=== PATIENT | male | born 1960 | race Caucasian/White ===

== ENCOUNTER 2016-06-24 15:54 | Inpatient (IN) | payer OTHER ==
[~2016-06-24] VITALS: Ht 182.9 cm; Wt 87.9 kg
[2016-06-24 16:41] LABS: BASO % 0.2 %; BASO ABS # 0.02 K/uL (0-0.2); COMPLETE YES; EOS % 0.7 %; HEMATOCRIT 48.2 % (42-52); IG% 0.5 %; LYMPH % 19.4 %; LYMPH ABS # 2.58 K/uL (1.2-3.4); MEAN CORPUSCULAR HEMOGLOBIN 31.8 pg (25-34); MEAN CORPUSCULAR HGB CONC 36.5 g/dl (32-36); MEAN PLATELET VOLUME 10.9 fL (7.4-10.4); MONO % 6.8 %; NEUT % 72.4 %; PLATELET COUNT 283 K/uL (130-400); RED BLOOD COUNT 5.54 M/uL (4.7-6.1); WHITE BLOOD COUNT 13.33 K/uL (4.8-10.8)
--- NOTE | 2016-06-24 16:47 | DIAGNOSTIC IMAGING REPORT ---
CHEST ONE VIEW PORTABLE CLINICAL HISTORY: Respiratory distress. Dyspnea. COMPARISON STUDY: Chest radiograph June 10, 2011. FINDINGS: Lung volumes are normal. There is no consolidation to suggest pneumonia. There is mild elevation/eventration of the right hemidiaphragm. There is no evidence of pulmonary edema. Cardiac size is normal. Mediastinal contours are normal. IMPRESSION: No acute cardiopulmonary findings. Electronically signed by: Jeremias Zuniga M.D. 06/24/2016 4:45 PM Dictated Date/Time: 06/24/2016 4:45 PM
[2016-06-24] MEDS ORDERED: LIOT5TAB9 PO (16:49)
[2016-06-24] MEDS ORDERED: LEVO75TA PO (16:49)
[2016-06-24] MEDS ORDERED: ASPI81TA28 PO (16:49)
[2016-06-24] MEDS ORDERED: CLOP1TAB15 PO (16:49)
[2016-06-24] MEDS ORDERED: MULT-506 PO (16:49)
[2016-06-24] MEDS ORDERED: CHOL2000 PO (16:49)
[2016-06-24] MEDS ORDERED: FOLI1TAB7 PO (16:49)
--- NOTE | 2016-06-24 16:51 | EMERGENCY ROOM VISIT NOTE ---
History Report prepared by Cheko: Dane Cancino Under the Supervision of: Dr. Harvey Rosa D.O. First contact with patient: 15:57 Chief Complaint: CHEST PAIN Stated Complaint: CHEST PAIN/TIGHTNESS Nursing Triage Summary: pt arrived als from pcp reported chest pain for three days, increased bp denied sob, diaphoresis pt reports having something like this before and they adjusted his thyroid medication History of Present Illness The patient is a 56 year old male who presents to the Emergency Room with complaints of resolved chest tightness beginning two days prior to arrival. He associates increased thirst with todays symptoms. The patient notes drinking water and exertion seem to alleviate his symptoms. He states he usually takes an aspirin a day, but he took two today and was given aspirin at his PCPs office. The patient notes he had a similar episode three years ago, in which, the symptoms were not associated with his heart. He states adjustments were made to his thyroid medication, and he has not had problems until two days ago. The patient denies shortness of breath and diaphoresis. Source of History: patient Onset: 2 days [employer]CIAL SAL[employer] Position: chest Quality: other (tightness) Timing: resolved Modifying Factors (Relieving): exertion, drinking (water) Associated Symptoms: + chest pain (tightness), No SOB, No diaphoresis Note: Associated symptoms: increased thirst Review of Systems See HPI for pertinent positives & negatives. A total of 10 systems reviewed and were otherwise negative. Past Medical & Surgical Medical Problems: (1) Bronchitis (2) Chest tightness (3) Pneumonia Family History Cancer Diabetes mellitus Heart disease Hypertension Social History Smoking Status: Former Smoker Alcohol Use: occasionally Marital Status: Current/Historical Medications Scheduled Aspirin (Aspirin Ec), 81 MG PO QPM Cholecalciferol (Vitamin D3), 2,000 INTER.UNIT PO DAILY Clopidogrel (Plavix), 75 MG PO DAILY Folic Acid (Folvite), 1 MG PO DAILY Levothyroxine Sodium (Synthroid), 75 MCG PO DAILY Liothyronine Sodium (Liothyronine Sodium), 5 MCG PO DAILY Multivitamin (Multivitamin), 1 TAB PO DAILY Allergies Coded Allergies: No Known Allergies (Unverified , 06/24/16) Physical Exam Vital Signs Date Time Temp Pulse Resp B/P Pulse Ox O2 Delivery O2 Flow Rate FiO2 06/24/16 18:04 76 13 97 2/10/17 18:04 76 13 97 06/24/16 18:03 175/110 06/24/16 18:03 175/110 06/24/16 17:58 181/109 06/24/16 17:58 181/109 06/24/16 17:53 191/115 06/24/16 17:53 191/115 06/24/16 17:48 197/119 06/24/16 17:48 197/119 06/24/16 17:43 200/129 06/24/16 17:43 200/129 06/24/16 17:38 189/115 06/24/16 17:38 189/115 06/24/16 17:37 185/116 06/24/16 17:37 185/116 06/24/16 17:34 66 17 97 06/24/16 17:34 66 17 97 06/24/16 17:29 79 18 06/24/16 17:28 218/115 06/24/16 17:24 79 21 97 06/24/16 17:23 202/119 06/24/16 17:19 81 13 97 06/24/16 17:18 205/113 06/24/16 17:14 95 12 95 06/24/16 17:13 198/118 06/24/16 17:10 188/134 06/24/16 17:09 104 16 97 06/24/16 17:04 100 16 97 06/24/16 17:01 112 185/120 06/24/16 16:59 100 17 184/128 97 06/24/16 16:54 100 16 96 06/24/16 16:49 101 17 96 06/24/16 16:44 96 14 96 06/24/16 16:39 101 17 96 06/24/16 16:34 99 15 97 06/24/16 16:30 93 Room Air 06/24/16 16:30 37.1 98 18 169/112 96 Room Air 06/24/16 16:29 100 17 96 06/24/16 16:25 93 Room Air 06/24/16 16:24 102 17 96 06/24/16 16:21 96 Room Air 06/24/16 16:19 98 19 95 06/24/16 16:14 103 17 97 06/24/16 16:10 101 06/24/16 16:09 98 18 97 06/24/16 16:03 169/112 Physical Exam GENERAL: Patient is awake, alert, and in no acute distress. Patient is resting comfortably and showing no signs of anxiety EYES: The conjunctivae are clear. The pupils are round and reactive. EARS, NOSE, MOUTH AND THROAT: The nose is without any evidence of any deformity. Mucous membranes are moist tongue is midline NECK: The neck is nontender and supple. RESPIRATORY: Normal respiratory effort is noted there is no evidence of wheezing rhonchi or rales CARDIOVASCULAR: Regular rate and rhythm noted there no murmurs rubs or gallops normal S1 normal S2 GASTROINTESTINAL: The abdomen is soft. Bowel sounds are present in all quadrants. Abdomen is nontender MUSCULOSKELETAL/EXTREMITIES: There is no evidence of gross deformity full range of motion is noted in the hips and shoulders SKIN: There is no obvious evidence of any rash. There are no petechiae, pallor or cyanosis noted. NEUROLOGIC: Patient is awake alert and oriented x3. Medical Decision & Procedures ER Provider Diagnostic Interpretation: X-ray results as stated below per interpretation by me and the radiologist. CHEST ONE VIEW PORTABLE CLINICAL HISTORY: Respiratory distress. Dyspnea. COMPARISON STUDY: Chest radiograph June 10, 2011. FINDINGS: Lung volumes are normal. There is no consolidation to suggest pneumonia. There is mild elevation/eventration of the right hemidiaphragm. There is no evidence of pulmonary edema. Cardiac size is normal. Mediastinal contours are normal. IMPRESSION: No acute cardiopulmonary findings. Electronically signed by: Jeremias Zuniga M.D. 06/24/2016 4:45 PM Laboratory Results 06/24/16 16:15 Red Blood Count 5.54, Mean Corpuscular Volume 87.0, Mean Corpuscular Hemoglobin 31.8, Mean Corpuscular Hemoglobin Concent 36.5, Mean Platelet Volume 10.9, Neutrophils (%) (Auto) 72.4, Lymphocytes (%) (Auto) 19.4, Monocytes (%) (Auto) 6.8, Eosinophils (%) (Auto) 0.7, Basophils (%) (Auto) 0.2, Neutrophils # (Auto) 9.66, Lymphocytes # (Auto) 2.58, Monocytes # (Auto) 0.91, Eosinophils # (Auto) 0.09, Basophils # (Auto) 0.02 06/24/16 16:15 Test 06/24/16 16:15 White Blood Count 13.33 K/uL (4.8-10.8) Red Blood Count 5.54 M/uL (4.7-6.1) Hemoglobin 17.6 g/dL (14.0-18.0) Hematocrit 48.2 % (42-52) Mean Corpuscular Volume 87.0 fL (80-100) Mean Corpuscular Hemoglobin 31.8 pg (25-34) Mean Corpuscular Hemoglobin Concent 36.5 g/dl (32-36) Platelet Count 283 K/uL (130-400) Mean Platelet Volume 10.9 fL (7.4-10.4) Neutrophils (%) (Auto) 72.4 % Lymphocytes (%) (Auto) 19.4 % Monocytes (%) (Auto) 6.8 % Eosinophils (%) (Auto) 0.7 % Basophils (%) (Auto) 0.2 % Neutrophils # (Auto) 9.66 K/uL (1.4-6.5) Lymphocytes # (Auto) 2.58 K/uL (1.2-3.4) Monocytes # (Auto) 0.91 K/uL (0.11-0.59) Eosinophils # (Auto) 0.09 K/uL (0-0.5) Basophils # (Auto) 0.02 K/uL (0-0.2) RDW Standard Deviation 43.0 fL (36.4-46.3) RDW Coefficient of Variation 13.4 % (11.5-14.5) Immature Granulocyte % (Auto) 0.5 % Immature Granulocyte # (Auto) 0.07 K/uL (0.00-0.02) Prothrombin Time 10.9 SECONDS (9.0-12.0) Prothromb Time International Ratio 1.0 (0.9-1.1) Activated Partial Thromboplast Time 25.7 SECONDS (21.0-31.0) Partial Thromboplastin Ratio 1.0 Anion Gap 12.0 mmol/L (3-11) Est Creatinine Clear Calc Drug Dose 83.4 ml/min Estimated GFR () 100.2 Estimated GFR (Non- 86.4 BUN/Creatinine Ratio 10.4 (10-20) Calcium Level 9.4 mg/dl (8.5-10.1) Total Bilirubin 0.7 mg/dl (0.2-1) Aspartate Amino Transf (AST/SGOT) 38 U/L (15-37) Alanine Aminotransferase (ALT/SGPT) 75 U/L (12-78) Alkaline Phosphatase 75 U/L (45-117) Troponin I 0.226 ng/ml (0-0.045) Total Protein 7.8 gm/dl (6.4-8.2) Albumin 4.2 gm/dl (3.4-5.0) Globulin 3.6 gm/dl (2.5-4.0) Albumin/Globulin Ratio 1.2 (0.9-2) Laboratory results per my review. Medications Administered Medications (Trade) Dose Ordered Sig/Jocelynn Route Start Time Stop Time Status Last Admin Dose Admin Metoprolol Tartrate (Lopressor Iv) 15 mg NOW STAT IV 06/24/16 17:01 06/24/16 17:02 DC 06/24/16 17:01 15 MG Ondansetron HCl (Zofran Inj) 4 mg Q6H PRN IV 06/24/16 18:00 07/24/16 17:59 06/24/16 20:35 4 MG ECG Indication: chest pain Rate (beats per minute): 98 Rhythm: normal sinus Findings: ST depression (Lateral), no ectopy Comparison ECG Date: 06/10/2011 Change: Changes are new. ED Course 1558: The patient was evaluated in room A12B. A complete history and physical examination were performed. 170: Ordered Lopressor Iv 15 mg IV. 1707: I spoke to VAIBHAV Whitney (Hospitalist) about the patient's case, and he will follow the patient for further evaluation. Medical Decision Etiologies such as cardiac ischemia, aortic dissection, pulmonary embolism, pneumonia, pneumothorax, musculoskeletal, infections, pericarditis, myocarditis , esophageal rupture, gastrointestinal, as well as others were entertained. Nursing notes reviewed. Patient's EKG from the PCPs office was reviewed. The patient is a 56-year-old male who presented to the emergency apartment for an evaluation of anterior chest pain. The patient has no chest pain at this time. He explains episodes of pressure across his chest. These very random and do not necessarily appear to be associated with exertion. The patient denies any shortness of breath. He states that he was seen by his primary care physician and sent to the emergency department for an evaluation. His EKG in the office appeared to show ST segment depression in the lateral leads consistent with ischemia. His EKG in the emergency department showed a similar pattern. This appeared to be a new change compared to his previous EKG. I discussed the patient's laboratory and radiographic studies with him. He was treated with aspirin prior to arrival. He was treated with Lopressor in the emergency department. I discussed the limitations of the emergency department workup for chest pain with him. I also discussed his case with the on-call [facility] hospitalist group. They have agreed to evaluate the patient in the emergency department for further management and disposition. Consults Time Called: 170 Consulting Physician: VAIBHAV Whitney (Hospitalist) Returned Call: 1707 I spoke to VAIBHAV Whitney (Hospitalist) about the patient's case, and he will follow the patient for further evaluation. Impression Primary Impression: Left sided chest pain Additional Impressions: Abnormal EKG Elevated troponin Scribe Attestation The scribe's documentation has been prepared under my direction and personally reviewed by me in its entirety. I confirm that the note above accurately reflects all work, treatment, procedures, and medical decision making performed by me. Departure Information Dispostion Being Evaluated By Hospitalist (VAIBHAV Whitney (Hospitalist)) Referrals Micki James MD (PCP) Problem Qualifiers
[2016-06-24 16:52] LABS: PROTHROMBIN TIME (PATIENT) 10.9 SECONDS (9.0-12.0)
[2016-06-24] MEDS ORDERED: METOPROLOL TARTRATE 1 MG/ML VIAL IV STA (17:01)
[2016-06-24 17:10] LABS: BUN/CREATININE RATIO 10.4 (10-20); CALCIUM 9.4 mg/dl (8.5-10.1); CREATININE 0.98 mg/dl (0.60-1.40); POTASSIUM 3.6 mmol/L (3.5-5.1)
[2016-06-24 17:13] LABS: ALB/GLOB RATIO 1.2 (0.9-2)
[2016-06-24] MEDS ORDERED: NITROGLYCERIN 0.4 MG SL PER TAB CHARGE SL PRN (18:00)
[2016-06-24] MEDS ORDERED: POLYETHYLENE (MIRALAX) 17 GM PACK PO PRN (18:00)
[2016-06-24] MEDS ORDERED: MAGNESIUM HYDROXIDE SUSP 30 ML UDC PO PRN (18:00)
[2016-06-24] MEDS ORDERED: MoRPHine SULFATE 2 MG/ML CARP IV PRN (18:00)
--- NOTE | 2016-06-24 18:46 | History and Physical ---
History & Physical Date & Time of Service: Jun 24, 2016 at 18:26 Chief Complaint: Chest Pain/Tightness Primary Care Physician: Micki James MD History of Present Illness Source: patient 56 y/o M with PMH of hypothyroidism here with c/o chest tightness which started about 2 days ago and is now resolved. He had taken 2 baby aspirin and was at his PCP's office where EKG had showed ST depression changes after which he was advised to go to the ER after getting another aspirin. He states his chest tightness is not associated with any SOB/palpitations/ nausea or diaphoresis but felt anxious on and off. His symptoms improved on drinking water and walking and "doing things". He notes that he had a similar episode three years ago, in which, the symptoms were not associated with his heart after a work up including a stress test. he is a former smoker and does have a significant f/h of heart disease in both his parents and his father had a [place] in his 40s. No h/o HTN or DM Past Medical/Surgical History Hypothyroidism TIA like symptoms Social History Smoking Status: Former Smoker Marital Status: Housing status: lives with family Multi-Drug Resistant Organisms History of MDRO: No Allergies Coded Allergies: No Known Allergies (Unverified , 06/24/16) Home Medications Scheduled Aspirin (Aspirin Ec), 81 MG PO QPM Cholecalciferol (Vitamin D3), 2,000 INTER.UNIT PO DAILY Clopidogrel (Plavix), 75 MG PO DAILY Folic Acid (Folvite), 1 MG PO DAILY Levothyroxine Sodium (Synthroid), 75 MCG PO DAILY Liothyronine Sodium (Liothyronine Sodium), 5 MCG PO DAILY Multivitamin (Multivitamin), 1 TAB PO DAILY Review of Systems Constitutional: No chills, No fever Eyes: No worsening of vision ENT: No hearing loss Respiratory: No cough, No shortness of breath Cardiovascular: + problem reported (chest tightness), No chest pain Abdomen: No nausea, No pain, No vomiting Musculoskeletal: No joint pain Genitourinary - Male: No dysuria, No hematuria Psychiatric: + anxiety Endocrine: No fatigue Physical Exam Vital Signs Date Time Temp Pulse Resp B/P Pulse Ox O2 Delivery O2 Flow Rate FiO2 06/24/16 17:29 79 18 06/24/16 17:28 218/115 06/24/16 17:24 79 21 97 06/24/16 17:23 202/119 06/24/16 17:19 81 13 97 06/24/16 17:18 205/113 06/24/16 17:14 95 12 95 06/24/16 17:13 198/118 06/24/16 17:10 188/134 06/24/16 17:09 104 16 97 06/24/16 17:04 100 16 97 06/24/16 17:01 112 185/120 06/24/16 16:59 100 17 184/128 97 06/24/16 16:54 100 16 96 06/24/16 16:49 101 17 96 06/24/16 16:44 96 14 96 06/24/16 16:39 101 17 96 06/24/16 16:34 99 15 97 06/24/16 16:30 93 Room Air 06/24/16 16:30 37.1 98 18 169/112 96 Room Air 06/24/16 16:29 100 17 96 06/24/16 16:25 93 Room Air 06/24/16 16:24 102 17 96 06/24/16 16:21 96 Room Air 06/24/16 16:19 98 19 95 06/24/16 16:14 103 17 97 06/24/16 16:10 101 06/24/16 16:09 98 18 97 06/24/16 16:03 169/112 General Appearance: WD/WN, no apparent distress Head: normocephalic Eyes: normal inspection ENT: hearing grossly normal Neck: supple, no adenopathy Respiratory/Chest: chest non-tender, lungs clear, normal breath sounds, no respiratory distress, no accessory muscle use Cardiovascular: regular rate, rhythm Abdomen/GI: normal bowel sounds, non tender, soft Extremities/Musculoskelatal: no pedal edema Neurologic/Psych: alert, normal mood/affect, oriented x 3 Diagnostics Laboratory Results Results Past 24 Hours Test 06/24/16 16:15 Range/Units White Blood Count 13.33 4.8-10.8 K/uL Red Blood Count 5.54 4.7-6.1 M/uL Hemoglobin 17.6 14.0-18.0 g/dL Hematocrit 48.2 42-52 % Mean Corpuscular Volume 87.0 80-100 fL Mean Corpuscular Hemoglobin 31.8 25-34 pg Mean Corpuscular Hemoglobin Concent 36.5 32-36 g/dl Platelet Count 283 130-400 K/uL Mean Platelet Volume 10.9 7.4-10.4 fL Neutrophils (%) (Auto) 72.4 % Lymphocytes (%) (Auto) 19.4 % Monocytes (%) (Auto) 6.8 % Eosinophils (%) (Auto) 0.7 % Basophils (%) (Auto) 0.2 % Neutrophils # (Auto) 9.66 1.4-6.5 K/uL Lymphocytes # (Auto) 2.58 1.2-3.4 K/uL Monocytes # (Auto) 0.91 0.11-0.59 K/uL Eosinophils # (Auto) 0.09 0-0.5 K/uL Basophils # (Auto) 0.02 0-0.2 K/uL RDW Standard Deviation 43.0 36.4-46.3 fL RDW Coefficient of Variation 13.4 11.5-14.5 % Immature Granulocyte % (Auto) 0.5 % Immature Granulocyte # (Auto) 0.07 0.00-0.02 K/uL Prothrombin Time 10.9 9.0-12.0 SECONDS Prothromb Time International Ratio 1.0 0.9-1.1 Activated Partial Thromboplast Time 25.7 21.0-31.0 SECONDS Partial Thromboplastin Ratio 1.0 Sodium Level 140 136-145 mmol/L Potassium Level 3.6 3.5-5.1 mmol/L Chloride Level 105 98-107 mmol/L Carbon Dioxide Level 23 21-32 mmol/L Anion Gap 12.0 3-11 mmol/L Blood Urea Nitrogen 10 7-18 mg/dl Creatinine 0.98 0.60-1.40 mg/dl Est Creatinine Clear Calc Drug Dose 83.4 ml/min Estimated GFR () 100.2 Estimated GFR (Non- 86.4 BUN/Creatinine Ratio 10.4 10-20 Random Glucose 187 70-99 mg/dl Calcium Level 9.4 8.5-10.1 mg/dl Total Bilirubin 0.7 0.2-1 mg/dl Aspartate Amino Transf (AST/SGOT) 38 15-37 U/L Alanine Aminotransferase (ALT/SGPT) 75 12-78 U/L Alkaline Phosphatase 75 45-117 U/L Total Protein 7.8 6.4-8.2 gm/dl Albumin 4.2 3.4-5.0 gm/dl Globulin 3.6 2.5-4.0 gm/dl Albumin/Globulin Ratio 1.2 0.9-2 Diagnostic Radiology [~ rep ct add3]] CHEST ONE VIEW PORTABLE CLINICAL HISTORY: Respiratory distress. Dyspnea. COMPARISON STUDY: Chest radiograph June 10, 2011. FINDINGS: Lung volumes are normal. There is no consolidation to suggest pneumonia. There is mild elevation/eventration of the right hemidiaphragm. There is no evidence of pulmonary edema. Cardiac size is normal. Mediastinal contours are normal. IMPRESSION: No acute cardiopulmonary findings. EKG Normal sinus rhythm Possible Left atrial enlargement Nonspecific ST abnormality Abnormal ECG When compared with ECG of 10-JUN-2011 11:31, ST now depressed in Lateral leads Impression Assessment and Plan 56 y/o M with PMH of hypothyroidism here with c/o chest tightness which started about 2 days ago and is now resolved. Chest pain with new ST depression changes: Observation in Tele EKG: Normal sinus rhythm, Possible Left atrial enlargement When compared with ECG of 10-JUN-2011 ST now depressed in Lateral lead - Troponin 0.226, trended q8h - CKMB pending - Aspirin - Echo ordered - Consider stress test in AM - Fasting lipids in AM Elevated BP: - BP has been elevated 160-200/100-129 - lisinopril 10 mg Hypothyroidism: - Continue liothyronine and Synthroid H/o TIA like symptoms: - Aspirin and Plavix Full code DVT prophylaxis: Enoxaparin Dispo: observation in tele Level of Care Telemetry Resuscitation Status FULL RESUSCITATION VTE Prophylaxis VTE Risk Assessment Done? Y/N: Yes Risk Level: Moderate Given or contraindicated: Enoxaparin (Lovenox)SQ Reviewed: Pt Seen/Exam by Me, RN Notes, HO Notes, Prior Records, Labs, RAD, EKG History Resident Physician Supervision Note: I was present with Dr. vegas during the history and exam. I discussed the case with the resident and agree with the findings and plan as documented in the note. Any exceptions or clarifications are listed here: 56 y/o M with PMH of hypothyroidism here with c/o chest tightness which started about 2 days ago and is now resolved. Documented By: Connor Fontaine Constitutional: denies: chills Respiratory: negative: cough Cardiovascular: denies chest pain Gastrointestinal/Abdominal: negative: abdominal pain Musculoskeletal: negative: back pain Neurological/Psych: negative: anxiety Hematologic/Lymphatic: negative: anemia General Appearance: WD/WN, no apparent distress Eye Exam: bilateral eye normal inspection Ears, Nose, Throat: hearing grossly normal Neck: non-tender Respiratory: chest non-tender Cardiovascular: regular rate, rhythm Gastrointestinal: normal bowel sounds Extremities: normal range of motion Neurologic/Psychiatric: alert Skin Characteristics: normal color Assessment/Plan 56 y/o M with PMH of hypothyroidism here with c/o chest tightness which started about 2 days ago and is now resolved. Chest pain with new ST depression changes: Tele EKG: Normal sinus rhythm, Possible Left atrial enlargement When compared with ECG of 10-JUN-2011 ST now depressed in Lateral lead Troponin 0.226, trend q8h CKMB pending. check q8h cont Aspirin Echo ordered Fasting lipids in AM Elevated BP: BP has been elevated 160-200/100-129 lisinopril 10 mg Hypothyroidism: Continue liothyronine and Synthroid H/o TIA like symptoms: Aspirin and Plavix Full code case discussed with PGY 1 Dr Vegas time spent 45 min
[2016-06-24] MEDS ORDERED: LISINOPRIL 20 MG TAB PO STA (18:58)
[2016-06-24 20:15] VITALS: BP 176/109; PULSE 67; TEMP 36.8; O2SAT 96
[2016-06-24] MEDS: ONDANSETRON INJ 2 MG/ML 2 ML VIAL IV PRN (20:35)
[2016-06-24 20:58] VITALS: BP 176/109; PULSE 67; TEMP 36.8; O2SAT 96; Ht 182.9 cm; Wt 87.9 kg
[2016-06-24] MEDS ORDERED: ENOXAPARIN 40 MG/0.4 ML SYR SC SCH (21:00)
[2016-06-24] MEDS ORDERED: IV FLUIDS COMPLETED PRN (21:30)
[2016-06-24 21:47] VITALS: BP 178/106
[2016-06-24] MEDS: NITROGLYCERIN OINT 2% 1GM PACKET EXT SCH (22:20)
[2016-06-24 22:35] VITALS: BP 164/98
[2016-06-24 23:47] VITALS: BP 135/73; PULSE 76; TEMP 37.1; O2SAT 95
[2016-06-25] VITALS (8 sets, daily range): BP systolic 113–147; BP diastolic 66–85; PULSE 60–76; TEMP 36.7–37; O2SAT 94–97
[2016-06-25 00:42] LABS: URINE APPEARANCE CLEAR (CLEAR); URINE BILIRUBIN NEG (NEG); URINE COLOR YELLOW; URINE NITRITE NEG (NEG); URINE SPECIFIC GRAVITY 1.004 (1.000-1.030); UROBILINOGEN NEG (NEG)
[2016-06-25 00:46] LABS: MANUAL MICROSCOPIC REQUIRED? NO; REVIEW REQ? NO
[2016-06-25] MEDS: NITROGLYCERIN OINT 2% 1GM PACKET EXT SCH ×4 (04:24→21:45)
[2016-06-25] MEDS ORDERED: SODIUM CHLORIDE 0.65% NA SOLN 45 ML (OCEAN) PRN (05:30)
[2016-06-25] MEDS ORDERED: PNEUMOCOCCAL ADMINISTRATION CHARGE ONE (08:00)
[2016-06-25] MEDS ORDERED: PNEUMOCOCCAL POLYSACCHARIDES 25 MCG/0.5 ML VIAL/SYR IM. ONE (08:00)
[2016-06-25] MEDS ORDERED: INFLUENZA ADMINISTRATION CHARGE ONE (08:00)
[2016-06-25] MEDS ORDERED: INFLUENZA VIRUS QUAD VACCINE 0.5 ML SYR IM. ONE (08:00)
[2016-06-25 08:30] LABS: HEMATOCRIT 45.6 % (42-52); MEAN CELL VOLUME 86.5 fL (80-100); MEAN CORPUSCULAR HEMOGLOBIN 30.6 pg (25-34); MEAN CORPUSCULAR HGB CONC 35.3 g/dl (32-36); MEAN PLATELET VOLUME 10.7 fL (7.4-10.4); PLATELET COUNT 268 K/uL (130-400); RED BLOOD COUNT 5.27 M/uL (4.7-6.1); WHITE BLOOD COUNT 17.54 K/uL (4.8-10.8)
[2016-06-25] MEDS: LISINOPRIL 10 MG TAB PO SCH (08:30)
[2016-06-25 09:00] LABS: BLOOD UREA NITROGEN 10 mg/dl (7-18); BUN/CREATININE RATIO 11.4 (10-20); CARBON DIOXIDE 22 mmol/L (21-32); CHLORIDE 106 mmol/L (98-107); CREATININE 0.91 mg/dl (0.60-1.40); GLUCOSE 141 mg/dl (70-99); POTASSIUM 3.9 mmol/L (3.5-5.1); SODIUM 139 mmol/L (136-145)
[2016-06-25] MEDS ORDERED: ASPIRIN 81 MG ECTAB PO SCH (09:00)
[2016-06-25 09:07] LABS: CHOLESTEROL 221 mg/dl (0-200); HDL CHOLESTEROL 44 mg/dl; LDL CHOLESTEROL CALCULATED 127 mg/dl; TRIGLYCERIDES 251 mg/dl (0-150); VERY LOW DENSITY LIPOPROT CALC 50 mg/dl
[2016-06-25] MEDS: LIOTHYRONINE SODIUM 5 MCG TAB PO SCH (10:23)
[2016-06-25] MEDS: LEVOTHYROXINE 75 MCG TAB PO SCH (10:24)
[2016-06-25] MEDS: CHOLECALCIFEROL 1000 INTER.UNIT TAB PO SCH (10:24)
[2016-06-25] MEDS: MULTIVITAMIN TAB PO SCH (10:24)
[2016-06-25] MEDS: CLOPIDOGREL BISULFATE 75 MG TAB PO SCH (10:24)
[2016-06-25] MEDS ORDERED: ATORVASTATIN 40 MG TAB PO ONE (13:30)
[2016-06-25 14:11] LABS: BASO % 0.1 %; BASO ABS # 0.02 K/uL (0-0.2); EOS % 0.2 %; HEMATOCRIT 43.5 % (42-52); IG% 0.4 %; LYMPH % 8.2 %; LYMPH ABS # 1.53 K/uL (1.2-3.4); MEAN CELL VOLUME 87.2 fL (80-100); MEAN CORPUSCULAR HEMOGLOBIN 31.1 pg (25-34); MEAN PLATELET VOLUME 10.4 fL (7.4-10.4); MONO % 7.5 %; NEUT % 83.6 %; PLATELET COUNT 253 K/uL (130-400); RED BLOOD COUNT 4.99 M/uL (4.7-6.1); WHITE BLOOD COUNT 18.77 K/uL (4.8-10.8)
[2016-06-25 14:19] LABS: COMPLETE YES; MEAN CORPUSCULAR HGB CONC 35.6 g/dl (32-36)
--- NOTE | 2016-06-25 14:22 | CARDIOLOGY CONSULTATION ---
DATE OF CONSULTATION: 06/25/2016 DATE OF CONSULTATION: 06/25/2016. PRIMARY PHYSICIAN: Micki James M.D. ATTENDING PHYSICIAN: Seymour Abrams D.O. CONSULTATION: Ashvin Nazario M.D. HISTORY OF PRESENT ILLNESS: The patient is a 56-year-old white male. No prior history of heart disease. On 06/22/2016, he began to develop recurrent episodes of chest tightness. He vaguely describes it. It was throughout his upper body. He does describe radiation into his neck, arms. No associated symptoms of diaphoresis, nausea, or dyspnea. He states the episodes were of mild intensity. They could last for a few hours at a time. He thinks they improved if you walked or drank water. He states that he went to bed that night with the discomfort. He woke up with it the next morning. He states over the next 2 days, he had intermittent episodes of similar discomfort. No association with activities. He was with his at her primary care provider's office yesterday. This is also his primary care provider. His symptoms were discussed with the primary care provider who subsequently performed an electrocardiogram. This revealed lateral ST segment depressions suggestive of ischemia. It was recommended to him that he go to [facility] for evaluation. The patient was subsequently evaluated in the Emergency Department. Repeat electrocardiogram again showed ST depressions in leads I, aVL, V4-V6 suggestive of ischemia. The depressions 0.5-1 mm. They are upsloping. The patient was admitted to the telemetry unit. He was placed on topical nitrates. At the time of admission, he was already on aspirin and clopidogrel. He states that this morning he had a vague sensation of chest tightness. At the current time he has no complaints of chest tightness or any other anginal type pains. He states that recently his exercise tolerance and stamina have been stable. He denies any exertionally precipitated anginal symptoms. No dyspnea on exertion. No orthopnea or PND. He did have sensation of increased heart rate this morning. He states the nursing staff told them on the monitor his heart rate was around 100. These palpitations has since resolved. CAD risk factors include family history of premature coronary artery disease. His father had a myocardial infarction when he was in his low 40s. The patient has glucose intolerance and dyslipidemia. These are both untreated. No history of hypertension. Prior history of cigarette smoking. He stopped smoking cigarettes 5 years ago. Prior to that he had smoked cigarettes for approximately 30 years up to 1 pack a day. The patient states that a few years ago he had similar type symptoms. He states his stress test was normal. There were no records of this test being performed at [facility]. PAST MEDICAL HISTORY: 1. Hypothyroidism. 2. History of adenomatous polyps of colon. 3. History of heme positive stool. 4. Colonoscopy 05/24/2016 with colon polyp. Subsequent polypectomy. 5. His office EHR records show history of type 2 diabetes mellitus. 6. Dyslipidemia, untreated. 7. Retinitis pigmentosa. 8. No prior overnight hospitalizations. PAST SURGICAL HISTORY: None. MEDICATIONS AT TIME OF ADMISSION: Were aspirin 81 mg daily, clopidogrel 75 mg daily, CoQ10 100 mg daily, folic acid 1 mg daily, Cytomel 5 mcg daily, multivitamin 1 daily, levothyroxine 75 mcg daily, vitamin D 2000 units daily. CURRENT MEDICATIONS: Aspirin 81 mg daily, clopidogrel 75 mg daily, folic acid 1 mg daily, levothyroxine 75 mcg daily, Cytomel 5 mcg daily, multivitamin 1 daily, vitamin D 2000 units daily, lisinopril 10 mg daily, nitroglycerin ointment 1 inch q. 6 hours, Lovenox 40 mg subQ at bedtime, and several p.r.n. medications. ALLERGIES: No known drug allergies. FAMILY HISTORY: His mother of complications of a myocardial infarction when she was in her 70s. Father with history of IA approximately age 40. He from complications of a CVA in his 70s. He has 1 sister who is alive and well. SOCIAL HISTORY: The patient is and lives with his . No children. Very rare alcohol use. He stopped smoking cigarettes 5 years ago. He is retired. He helps provide care to his . She has chronic right chest wound that requires dressing changes twice a day. REVIEW OF SYSTEMS: 1. As above. 2. Recent sensation of increased thirst. 3. He complains of increased urination recently. No other urinary complaints. 4. No current symptoms of GI bleeding. No other bleeding complaints. 5. No cerebrovascular or peripheral vascular complaints. 6. Other than the dry mouth, no other HEENT complaints. 7. No pulmonary complaints. PHYSICAL EXAMINATION: GENERAL: The patient is sitting up in his bed. No distress. VITAL SIGNS: At 11:03 a.m. today with oral temperature 36.9, pulse 68, blood pressure 121/69, pulse oximetry room air 95%. HEAD: Normal. EYES: Pupils equal and round. Anicteric. Conjunctivae normal. No xanthelasma. NECK: No jugular venous distension. Carotids 2/2 bilaterally. Normal upstroke. No bruits. LUNGS: Normal respiratory effort. Clear. No rales or wheezes. HEART: PMI normal. No lifts or heaves. Regular rate and rhythm. S1, S2 normal. No S3 or S4. No murmur or rub. ABDOMEN: Soft. Nontender. No palpable masses or organomegaly. No bruits. EXTREMITIES: No pretibial edema. No cyanosis or clubbing. PULSES: Distal pulses in all extremities strongly palpable. NEUROLOGICAL: Alert and oriented x3. Motor grossly intact. PSYCHIATRIC: Affect is normal. DATA: Electrocardiograms were reviewed by me. Electrocardiogram yesterday with sinus rhythm, ST depressions in leads 1, aVL, V4-V6 suggestive of ischemia. Electrocardiogram performed this morning with horizontal slowly upsloping ST depression in V4-V6. Chest x-ray on this admission and reviewed by me shows normal heart size. No evidence of heart failure or infiltrate. LABORATORY DATA TODAY: WBC 17.54, hemoglobin 16.1, hematocrit 45.6, platelet count 268. INR yesterday was 1.0. PTT 25.7. Metabolic profile today with sodium 139, potassium 3.9, chloride 106, carbon dioxide 22, BUN 10, creatinine 0.91, random glucose 141. CK-MBs have been 17.4 and 16.1. Troponin I's have been 2.090 and 2.230. Another troponin I was reported to be 0.226. Lipid profile with triglycerides 251, total cholesterol 221, calculated LDL 127, HDL 44. TSH 4.850. AST yesterday was 38. ASSESSMENT: 1. Non-ST elevation myocardial infarction. Lateral ST segment changes suggestive of ischemia. No diagnostic ST segment abnormalities of myocardial injury. Troponin I significantly elevated. The patient has been experiencing recurrent episodes of a vaguely described upper chest tightness over the past 3 days. No exertional component to it. He may have had a brief episode this morning. He is very unclear in his history about his symptoms. 2. Coronary artery disease risk factors include prior smoking history, family history of premature coronary artery disease, diabetes mellitus, dyslipidemia. His dyslipidemia thus far has been not treated with medical therapy. 3. Hypothyroidism. 4. Elevations in blood pressure with chest tightness. This could be secondary to myocardial ischemia. 5. No evidence of cerebrovascular disease or peripheral vascular disease. 6. Elevated white blood cell count. This may be secondary to stress of his acute illness. No symptoms suggestive of infection. RECOMMENDATIONS: 1. Continue aspirin and clopidogrel. He states he has been on clopidogrel since he was evaluated for chest discomfort 3 years ago. 2. Discontinue Lovenox. 3. Start intravenous heparin by weight based protocol. 4. Metoprolol tartrate 25 mg b.i.d. Titrate upwards to control heart rate. 5. Atorvastatin 80 mg daily. First dose today. 6. Repeat cardiac enzymes and electrocardiogram tomorrow. 7. If the patient agrees to stay in the hospital would schedule him for cardiac catheterization on Monday06/27/2016. The patient states that he is considering leaving the hospital just to be able to go home and tend to his . I discussed with him that I would not recommend this. I discussed with him that he would be at increased risk for a large myocardial infarction if he went home. He will discuss his plans with Dr. Seymour Abrams who is the hospitalist covering him today. If he does desire to go home the would set him up for outpatient cardiac catheterization early next week. The above assessment and recommendations were discussed with the patient, Dr. Abrams, and the nursing staff. The procedure, alternatives, risks, and benefits of cardiac catheterization and coronary intervention were extensively discussed with the patient by me. Thank you for asking us to see this patient in cardiology consultation.
[2016-06-25 14:31] LABS: PROTHROMBIN TIME (PATIENT) 11.1 SECONDS (9.0-12.0)
[2016-06-25] MEDS ORDERED: HEPARIN IV BOLUS 7,000 UNIT in SYRINGE 0 ML IV ONE (16:00)
[2016-06-25] MEDS: HEPARIN 25,000 UNIT/500ML D5W 500 ML IV PRN (16:29)
[2016-06-25] MEDS: LORAZEPAM 0.5 MG TAB PO PRN (16:32)
[2016-06-25] MEDS: ACETAMINOPHEN 325 MG TAB PO PRN (16:34)
--- NOTE | 2016-06-25 16:48 | Progress Note ---
Subjective Date of Service: Jun 25, 2016. Subjective Pt evaluation today including: conversation w/ patient, conversation w/ family , physical exam, chart review, lab review, review of studies, conversation w/ email production consultant, review of inpatient medication list chest pain overall improved. has some residual tightness but thinks this might actually be anxiety from being in the hospital. no sob. worried about taking care of his - when clarifying this, she's safe at home alone, drives/can get food/etc - just notes the main thing is BID dressing changes to her chest wall - when discussing home services/etc - he notes that it's simple enough he could just do it when she comes to the hospital to visit him. worried about going home though - 2 visits, ~45mins (or more) face to face in discussions w pt and then later pt and , in regards to risks/benefits/ alternatives for treating NSTEMI and presumed CAD. Problem List Medical Problems: (1) Abnormal EKG Status: Acute (2) Elevated troponin Status: Acute (3) Left sided chest pain Status: Acute Review of Systems Cardiac: + see HPI Psychiatric: + see HPI ros otherwise negative except for as above Objective Vital Signs Date Time Temp Pulse Resp B/P Pulse Ox O2 Delivery O2 Flow Rate FiO2 06/25/16 15:43 37.0 75 18 147/85 94 Room Air 06/25/16 12:00 95 Room Air 06/25/16 11:03 36.9 68 18 121/69 95 Room Air 06/25/16 08:00 95 Room Air 06/25/16 07:20 36.7 67 18 113/70 95 Room Air 06/25/16 04:22 115/77 06/25/16 04:13 37.0 76 20 129/66 96 Room Air 06/25/16 04:00 Room Air 06/25/16 00:00 Room Air 06/24/16 23:47 37.1 76 20 135/73 95 Room Air 06/24/16 22:35 164/98 06/24/16 21:47 178/106 06/24/16 20:58 36.8 67 16 176/109 96 Room Air 06/24/16 20:15 36.8 67 16 176/109 96 Room Air 06/24/16 19:34 82 18 168/125 96 Room Air 2/10/17 18:28 166/120 06/24/16 18:28 166/120 06/24/16 18:23 183/101 06/24/16 18:23 183/101 06/24/16 18:18 190/112 06/24/16 18:18 190/112 06/24/16 18:13 166/111 06/24/16 18:13 166/111 06/24/16 18:08 164/100 06/24/16 18:08 164/100 06/24/16 18:04 76 13 97 06/24/16 18:04 76 13 97 06/24/16 18:03 175/110 06/24/16 18:03 175/110 06/24/16 17:58 181/109 06/24/16 17:58 181/109 06/24/16 17:53 191/115 06/24/16 17:53 191/115 06/24/16 17:48 197/119 06/24/16 17:48 197/119 06/24/16 17:43 200/129 06/24/16 17:43 200/129 06/24/16 17:38 189/115 06/24/16 17:38 189/115 06/24/16 17:37 185/116 06/24/16 17:37 185/116 06/24/16 17:34 66 17 97 06/24/16 17:34 66 17 97 06/24/16 17:29 79 18 06/24/16 17:28 218/115 06/24/16 17:24 79 21 97 06/24/16 17:23 202/119 06/24/16 17:19 81 13 97 06/24/16 17:18 205/113 06/24/16 17:14 95 12 95 06/24/16 17:13 198/118 06/24/16 17:10 188/134 06/24/16 17:09 104 16 97 06/24/16 17:04 100 16 97 06/24/16 17:01 112 185/120 06/24/16 16:59 100 17 184/128 97 06/24/16 16:54 100 16 96 06/24/16 16:49 101 17 96 06/24/16 16:44 96 14 96 Physical Exam General Appearance: no apparent distress Eyes: EOMI ENT: hearing grossly normal Neck: trachea midline Respiratory/Chest: no respiratory distress, no accessory muscle use Extremities: normal range of motion Neurologic/Psychiatric: compressor battery pellets II-XII nml as tested, alert, normal mood/affect ( anxious at times but seems overall appropriate to the situation), oriented x 3 Skin: normal color, warm/dry Laboratory Results Last 24 Hours Test 06/24/16 23:59 06/25/16 00:33 06/25/16 07:59 06/25/16 08:10 Creatine Kinase MB Ratio Urine Color YELLOW Urine Appearance CLEAR Urine pH 7.0 Urine Specific [place] 1.004 Urine Protein NEG Urine Glucose (UA) 2+ Urine Ketones NEG Urine Occult Blood NEG Urine Nitrite NEG Urine Bilirubin NEG Urine Urobilinogen NEG Urine Leukocyte Esterase NEG White Blood Count 17.54 K/uL Red Blood Count 5.27 M/uL Hemoglobin 16.1 g/dL Hematocrit 45.6 % Mean Corpuscular Volume 86.5 fL Mean Corpuscular Hemoglobin 30.6 pg Mean Corpuscular Hemoglobin Concent 35.3 g/dl RDW Standard Deviation 42.6 fL RDW Coefficient of Variation 13.5 % Platelet Count 268 K/uL Mean Platelet Volume 10.7 fL Sodium Level 139 mmol/L Potassium Level 3.9 mmol/L Chloride Level 106 mmol/L Carbon Dioxide Level 22 mmol/L Anion Gap 11.0 mmol/L Blood Urea Nitrogen 10 mg/dl Creatinine 0.91 mg/dl Est Creatinine Clear Calc Drug Dose 100.7 ml/min Estimated GFR () 109.6 Estimated GFR (Non- 94.5 BUN/Creatinine Ratio 11.4 Random Glucose 141 mg/dl Calcium Level 9.0 mg/dl Creatine Kinase MB 16.1 ng/ml Troponin I 2.320 ng/ml Triglycerides Level 251 mg/dl Cholesterol Level 221 mg/dl HDL Cholesterol 44 mg/dl LDL Cholesterol, Calculated 127 mg/dl VLDL Cholesterol, Calculated 50 mg/dl Cholesterol/HDL Ratio 5.0 Thyroid Stimulating Hormone (TSH) 4.850 uIu/ml Test 06/25/16 14:03 White Blood Count 18.77 K/uL Red Blood Count 4.99 M/uL Hemoglobin 15.5 g/dL Hematocrit 43.5 % Mean Corpuscular Volume 87.2 fL Mean Corpuscular Hemoglobin 31.1 pg Mean Corpuscular Hemoglobin Concent 35.6 g/dl Platelet Count 253 K/uL Mean Platelet Volume 10.4 fL Neutrophils (%) (Auto) 83.6 % Lymphocytes (%) (Auto) 8.2 % Monocytes (%) (Auto) 7.5 % Eosinophils (%) (Auto) 0.2 % Basophils (%) (Auto) 0.1 % Neutrophils # (Auto) 15.70 K/uL Lymphocytes # (Auto) 1.53 K/uL Monocytes # (Auto) 1.41 K/uL Eosinophils # (Auto) 0.03 K/uL Basophils # (Auto) 0.02 K/uL RDW Standard Deviation 43.6 fL RDW Coefficient of Variation 13.7 % Immature Granulocyte % (Auto) 0.4 % Immature Granulocyte # (Auto) 0.08 K/uL Prothrombin Time 11.1 SECONDS Prothromb Time International Ratio 1.0 Activated Partial Thromboplast Time 25.3 SECONDS Partial Thromboplastin Ratio 1.0 Assessment and Plan NSTEMI (either from CAD or due to hypertensive urgency with probable underlying CAD) -med management - on dual antiplatelets already, add beta nico, on ACEi, currently on nitrates, add statin, add heparin gtt for now, cath soon) -after extensive discussion of cath, med management, home/return vs ongoing inpt - after discussing small but real risk for re-infarction, non-perfusing arrhythmia - he opts to stay. -labs ordered to risk stratify w lipids, sugar hypertensive urgency - med as above, BP has improved Hypothyroidism: - Continue liothyronine and Synthroid - check TSH a few hours after taking T3 drug - typically these peak and drop quickly - may be becoming transiently hyperthyroid which would not help in BP/ CAD management, etc anxiety -extensive reassurance, supportive care. while in hospital, prn ativan TIA like symptoms: - Aspirin and Plavix leukocytosis -no s/s infection -continue to follow, follow vitals, serial exams, check CRP Full code DVT prophylaxis: Enoxaparin again ~45mins (or more) face to face between two visits - pt and then pt/
[2016-06-25] MEDS: ASPIRIN 81 MG ECTAB PO SCH (20:31)
[2016-06-25] MEDS: METOPROLOL TARTRATE 25 MG TAB PO SCH (20:31)
[2016-06-25 22:56] LABS: PARTIAL THROMBOPLASTIN RATIO 1.9
[2016-06-26] VITALS (11 sets, daily range): BP systolic 114–169; BP diastolic 67–99; PULSE 56–88; TEMP 36.4–37; O2SAT 93–96
[2016-06-26] MEDS: NITROGLYCERIN OINT 2% 1GM PACKET EXT SCH ×4 (03:59→21:14)
[2016-06-26] MEDS: ONDANSETRON INJ 2 MG/ML 2 ML VIAL IV PRN ×2 (04:02→17:40)
[2016-06-26] MEDS: ACETAMINOPHEN 325 MG TAB PO PRN ×3 (04:04→17:40)
[2016-06-26] MEDS: LIOTHYRONINE SODIUM 5 MCG TAB PO SCH (06:19)
[2016-06-26] MEDS: LEVOTHYROXINE 75 MCG TAB PO SCH (06:19)
[2016-06-26 07:46] LABS: PARTIAL THROMBOPLASTIN RATIO 1.9
[2016-06-26] MEDS: ATORVASTATIN 40 MG TAB PO SCH (08:04)
[2016-06-26] MEDS: MULTIVITAMIN TAB PO SCH (08:05)
[2016-06-26] MEDS: CHOLECALCIFEROL 1000 INTER.UNIT TAB PO SCH (08:05)
[2016-06-26] MEDS: LISINOPRIL 10 MG TAB PO SCH (08:06)
[2016-06-26] MEDS: METOPROLOL TARTRATE 25 MG TAB PO SCH ×2 (09:00→21:13)
[2016-06-26] MEDS: CLOPIDOGREL BISULFATE 75 MG TAB PO SCH (09:46)
[2016-06-26] MEDS: HEPARIN 25,000 UNIT/500ML D5W 500 ML IV PRN (09:46)
[2016-06-26 10:31] LABS: BASO % 0.2 %; BASO ABS # 0.04 K/uL (0-0.2); COMPLETE YES; EOS % 0.2 %; HEMATOCRIT 46.4 % (42-52); IG% 0.5 %; LYMPH % 14.9 %; LYMPH ABS # 2.74 K/uL (1.2-3.4); MEAN CELL VOLUME 87.5 fL (80-100); MEAN CORPUSCULAR HEMOGLOBIN 31.1 pg (25-34); MEAN CORPUSCULAR HGB CONC 35.6 g/dl (32-36); MEAN PLATELET VOLUME 10.8 fL (7.4-10.4); NEUT % 76.2 %; PLATELET COUNT 309 K/uL (130-400); WHITE BLOOD COUNT 18.45 K/uL (4.8-10.8)
[2016-06-26 11:01] LABS: BUN/CREATININE RATIO 11.4 (10-20); CALCIUM 9.7 mg/dl (8.5-10.1); CREATININE 0.94 mg/dl (0.60-1.40); POTASSIUM 3.4 mmol/L (3.5-5.1)
[2016-06-26] MEDS ORDERED: GLUCOSE 40% GEL 15 GM TUBE PO PRN (12:30)
[2016-06-26] MEDS ORDERED: GLUCOSE 10 TABS/TUBE PO PRN (12:30)
[2016-06-26] MEDS ORDERED: GLUCAGON FOR INJ 1 MG VIAL SQ PRN (12:30)
[2016-06-26] MEDS ORDERED: POTASSIUM CHLORIDE 20 MEQ TABCR PO ONE (12:30)
[2016-06-26] MEDS ORDERED: DEXTROSE 50% 50 ML SYR IV PRN (12:30)
--- NOTE | 2016-06-26 12:38 | Hospitalist Progress Note ---
Hospitalist Progress Note Date of Service Jun 26, 2016. (Tawny Michele .SIMONA) Subjective Pt evaluation today including: conversation w/ patient, physical exam, review of inpatient medication list Pain: None PO Intake: Tolerating PO diet Voiding: no voiding problems Patient currently denies any chest pain or shortness of breath. He does complain of a headache but denies any other complaints. Overnight and this morning, the patient was found to have multiple pauses on tele. The patient was also bradycardic this morning with a HR of 56. He was not administered his morning dose of Lopressor due to hold parameters. The patient denies fevers, chills, sweats, chest pain, palpitations, claudication, cough, wheezing, shortness of breath, nausea, vomiting, abdominal pain, dysuria, hematuria, urinary retention, paralysis, weakness, numbness and tingling. Additional Comments: See HPI for pertinent positives and negatives. All other systems reviewed and negative. (Tawny Michele PA-C) Objective Vital Signs Date Time Temp Pulse Resp B/P Pulse Ox O2 Delivery O2 Flow Rate FiO2 06/26/16 08:00 96 Room Air 06/26/16 07:59 36.4 56 18 124/74 96 06/26/16 04:10 Room Air 06/26/16 03:50 36.6 61 16 114/67 93 Room Air 06/26/16 00:21 37.0 69 18 147/69 95 Room Air 06/26/16 00:15 Room Air 06/25/16 20:15 Room Air 06/25/16 20:11 36.7 60 18 146/77 97 Room Air 06/25/16 16:30 Room Air 06/25/16 15:43 37.0 75 18 147/85 94 Room Air 06/25/16 12:00 95 Room Air (Tawny Michele PA-C) Physical Exam General Appearance: WD/WN, no apparent distress Eyes: normal inspection, PERRL, EOMI ENT: normal ENT inspection, hearing grossly normal, pharynx normal Neck: supple, no JVD, trachea midline Respiratory/Chest: lungs clear, normal breath sounds, no respiratory distress Cardiovascular: regular rate, rhythm, no gallop, no murmur Abdomen: normal bowel sounds, non tender, soft Extremities: non-tender, normal inspection, no pedal edema Neurologic/Psychiatric: alert, normal mood/affect, oriented x 3 Skin: normal color, warm/dry, no rash (Tawny Michele ., SIMONA) Laboratory Results Last 24 Hours Test 06/25/16 14:03 06/25/16 17:31 06/25/16 22:26 06/26/16 07:13 White Blood Count 18.77 K/uL Red Blood Count 4.99 M/uL Hemoglobin 15.5 g/dL Hematocrit 43.5 % Mean Corpuscular Volume 87.2 fL Mean Corpuscular Hemoglobin 31.1 pg Mean Corpuscular Hemoglobin Concent 35.6 g/dl Platelet Count 253 K/uL Mean Platelet Volume 10.4 fL Neutrophils (%) (Auto) 83.6 % Lymphocytes (%) (Auto) 8.2 % Monocytes (%) (Auto) 7.5 % Eosinophils (%) (Auto) 0.2 % Basophils (%) (Auto) 0.1 % Neutrophils # (Auto) 15.70 K/uL Lymphocytes # (Auto) 1.53 K/uL Monocytes # (Auto) 1.41 K/uL Eosinophils # (Auto) 0.03 K/uL Basophils # (Auto) 0.02 K/uL RDW Standard Deviation 43.6 fL RDW Coefficient of Variation 13.7 % Immature Granulocyte % (Auto) 0.4 % Immature Granulocyte # (Auto) 0.08 K/uL Prothrombin Time 11.1 SECONDS Prothromb Time International Ratio 1.0 Activated Partial Thromboplast Time 25.3 SECONDS 50.1 SECONDS 49.0 SECONDS Partial Thromboplastin Ratio 1.0 1.9 1.9 C-Reactive Protein 0.46 mg/dl Troponin I 3.070 ng/ml Test 06/26/16 10:15 White Blood Count 18.45 K/uL Red Blood Count 5.30 M/uL Hemoglobin 16.5 g/dL Hematocrit 46.4 % Mean Corpuscular Volume 87.5 fL Mean Corpuscular Hemoglobin 31.1 pg Mean Corpuscular Hemoglobin Concent 35.6 g/dl Platelet Count 309 K/uL Mean Platelet Volume 10.8 fL Neutrophils (%) (Auto) 76.2 % Lymphocytes (%) (Auto) 14.9 % Monocytes (%) (Auto) 8.0 % Eosinophils (%) (Auto) 0.2 % Basophils (%) (Auto) 0.2 % Neutrophils # (Auto) 14.08 K/uL Lymphocytes # (Auto) 2.74 K/uL Monocytes # (Auto) 1.47 K/uL Eosinophils # (Auto) 0.03 K/uL Basophils # (Auto) 0.04 K/uL RDW Standard Deviation 43.6 fL RDW Coefficient of Variation 13.6 % Immature Granulocyte % (Auto) 0.5 % Immature Granulocyte # (Auto) 0.09 K/uL Sodium Level 137 mmol/L Potassium Level 3.4 mmol/L Chloride Level 101 mmol/L Carbon Dioxide Level 25 mmol/L Anion Gap 11.0 mmol/L Blood Urea Nitrogen 11 mg/dl Creatinine 0.94 mg/dl Est Creatinine Clear Calc Drug Dose 97.5 ml/min Estimated GFR () 105.4 Estimated GFR (Non- 90.9 BUN/Creatinine Ratio 11.4 Random Glucose 195 mg/dl Calcium Level 9.7 mg/dl (Tawny Michele, BRANDENC) Assessment and Plan 56 y/o male with a history of HLD, DM II, and hypothyroidism who presented to the ED on 06/24 with chest tightness/pain x 2 days. Patient found to have elevated troponin and new lateral ST depressions. NSTEMI -Admitted to telemetry -Cardiology consulted, appreciate recs: D/C Lovenox and start heparin drip, plan for cardiac cath on 06/27 -Troponin trending upward, troponin 06/26 3.070. Repeat troponin at 1500 as it has not yet peaked -Echocardiogram pending -Plan for cardiac cath Monday morning -NPO after midnight -Fasting lipid profile: total cholesterol 221, HDL 44, LDL 127, triglycerides 251 -Continue ASA and Plavix -Decrease metoprolol tartrate dose to 12.5 mg PO BID due to overnight pauses and bradycardia -Lisinopril 10 mg PO qd -Atorvastatin 80 mg PO qd -Nitro paste 1 inch EXT q6h. Pt c/o headache, may be due to nitro. Held 1 dose but BP did start to elevate again. Will continue to schedule -Heparin drip Hypertensive urgency--BP improved since arrival -Continue metoprolol, lisinopril, and nitro as above Diabetes mellitus type 2--Pt has been diet controlled. Last HgbA1c checked 12/08 was 6.5 -Insulin sliding scale -Check BSGs q ac and qhs while eating, q6h while NPO -Recheck HgbA1c Hypothyroidism -TSH slightly elevated at 4.85 -No changes to home thyroid medications at this point, continue Synthroid 75 mcg PO qd and liothyronine 5 mcg PO qd Leukocytosis--stable -WBC 18.45 on 06/26, stable from 06/25 -No obvious source of infection, pt afebrile -CRP elevated at 0.46 DVT prophylaxis -Heparin drip Code Status -Level I, FULL RESUSCITATION STATUS (Tawny Michele ., PA-C) i personally examined pt and verified all cabrera points w A Ryne PAC feeling OK - but when nitro held, headache improved but then arm tightness returned vitals noted, nad breathing unlabored NSTEMI- stable, but will resume nitrates - for [facility] headache - likely nitrates induced but tolerable DVT proph - heparin gtt pending [facility] (Seymour Abrams D.Delores.)
--- NOTE | 2016-06-26 13:12 | ECHOCARDIOGRAM REPORT ---
*NOTICE TO RECEIVING REPUBLICAN AGENCY This information is strictly Confidential and protected under [place] law. [place] law prohibits you from making any further disclosure of this information unless further disclosure is expressly permitted by the written consent of the person to whom it pertains or is authorized by law. A general authorization for the release of medical or other information is not sufficient for this purpose. Hospital accepts no responsibility if the information is made available to any other person, INCLUDING THE PATIENT. Interpretation Summary * Name: BARRON RUDOLPH Study Date: 06/26/2016 06:54 AM BP: 115/77 mmHg * Patient Location: [facility]\S\N286\S\2 HR: 55 * : 1960 (M/d/yyyy) Gender: Male Height: 72 in * Age: 56 yrs Ethnicity: [place] Weight: 152 lb * Ordering Physician: Connor Fontaine * Referring Physician: Self, Referred * Performed By: Mau Cruz RDCS * * Reason For Study: Chest pain * BSA: 1.9 m2 * Normal biventricular systolic function. * Mild concentric left ventricular hypertrophy. * Normal chamber dimensions. * No significant valvular abnormalities. Procedure Details * A complete two-dimensional transthoracic echocardiogram was performed (2D, M-mode, Doppler and color flow Doppler). * The study was technically adequate. Left Ventricle * The left ventricle is normal in size. * There is mild concentric left ventricular hypertrophy. * Proximal septal thickening is noted. * Left ventricular systolic function is normal. * Ejection Fraction = 60-65%. * No regional wall motion abnormalities noted. Right Ventricle * The right ventricle is normal in size and function. Atria * The left atrial size is normal. * Right atrial size is normal. Mitral Valve * The mitral valve is normal. * There is no mitral valve stenosis. * There is no mitral regurgitation noted. Tricuspid Valve * The tricuspid valve is normal. * There is no tricuspid stenosis. * There is trace tricuspid regurgitation. Aortic Valve * The aortic valve is trileaflet. * The aortic valve opens well. * Aortic stenosis is absent. * No aortic regurgitation is present. Pulmonic Valve * The pulmonic valve is not well visualized. * There is no pulmonic valvular stenosis. * Trace pulmonic valvular regurgitation. Great Vessels * The aortic root is normal size. Pericardium/Pleural * There is no pericardial effusion. Great Vessels * Normal inferior vena cava diameter and respiratory variation suggests normal central venous pressure. MMode 2D Measurements and Calculations IVSd 1.4 cm IVSs 1.8 cm LVIDd 4.0 cm LVIDs 2.6 cm LVPWd 1.4 cm LVPWs 1.6 cm IVS/LVPW 0.98 FS 33.4 % EDV(Teich) 68.9 ml ESV(Teich) 25.8 ml EF(Teich) 62.6 % EDV(cubed) 62.8 ml ESV(cubed) 18.6 ml EF(cubed) 70.4 % % IVS thick 28.0 % % LVPW thick 16.5 % LV mass(C)d 206.2 grams LV mass(C)dI 108.8 grams/m\S\2 LV mass(C)s 170.3 grams LV mass(C)sI 89.9 grams/m\S\2 SV(Teich) 43.2 ml SI(Teich) 22.8 ml/m\S\2 SV(cubed) 44.2 ml SI(cubed) 23.3 ml/m\S\2 Ao root diam 3.4 cm Ao root area 9.2 cm\S\2 ACS 2.2 cm LA dimension 3.8 cm asc Aorta Diam 3.4 cm LA/Ao 1.1 LVAd ap4 25.3 cm\S\2 LVLd ap4 7.8 cm EDV(MOD-sp4) 68.0 ml LVAs ap4 14.8 cm\S\2 LVLs ap4 6.7 cm ESV(MOD-sp4) 28.0 ml EF(MOD-sp4) 58.8 % LVAd ap2 24.5 cm\S\2 LVLd ap2 8.1 cm EDV(MOD-sp2) 62.0 ml LVAs ap2 14.2 cm\S\2 LVLs ap2 6.9 cm ESV(MOD-sp2) 25.0 ml EF(MOD-sp2) 59.7 % SV(MOD-sp4) 40.0 ml SI(MOD-sp4) 21.1 ml/m\S\2 SV(MOD-sp2) 37.0 ml SI(MOD-sp2) 19.5 ml/m\S\2 Doppler Measurements and Calculations MV E max wilbert 94.3 cm/sec MV A max wilbert 80.6 cm/sec MV E/A 1.2 MV dec time 0.18 sec Ao V2 max 121.6 cm/sec Ao max PG 5.9 mmHg Ao max PG (full) 2.4 mmHg LV V1 max PG 3.6 mmHg LV V1 max 94.3 cm/sec PA V2 max 106.0 cm/sec PA max PG 4.5 mmHg PI end-d wilbert 103.4 cm/sec
--- NOTE | 2016-06-26 14:37 | CARDIOLOGY PROGRESS NOTE ---
DATE: 06/26/2016 HISTORY OF PRESENT ILLNESS: The patient was seen by me in his telemetry unit room. His nitro paste was held this morning because of headaches. His headache resolved. He then developed a mild tightness in his left upper arm. He subsequently received a sublingual nitroglycerin tablet. He states that the left arm discomfort resolved promptly within a few minutes of receiving the ____ nitroglycerin. No further complaints of left arm discomfort. No chest tightness. He denies any orthopnea or PND. No palpitations, lightheadedness, syncope, or peripheral edema. No abdominal pain. No nausea. No bleeding complaints. No cerebrovascular complaints. Overnight he had pauses in his rhythm. His metoprolol dose has subsequently been decreased from 25 mg b.i.d. to 12.5 mg b.i.d. CURRENT MEDICATIONS: Metoprolol tartrate 12.5 mg b.i.d., aspirin 81 mg daily, atorvastatin 80 mg daily, intravenous heparin by weight-based protocol, clopidogrel 75 mg daily, lorazepam 0.5 mg q. 6 hours as needed, folic acid 1 mg daily, levothyroxine 75 mcg daily, Cytomel 5 mcg daily, multivitamin 1 daily, vitamin D 2000 units daily, lisinopril 10 mg daily, nitroglycerin ointment 1 inch q. 6 hours. PHYSICAL EXAMINATION: VITAL SIGNS: At 12:00 noon with pulse 71, blood pressure 168/83, pulse oximetry room air 95%. NECK: No jugular venous distention. LUNGS: Normal respiratory effort. Clear. No rales or wheezes. HEART: Regular rate and rhythm. S1, S2 normal. No S3 or S4. No murmur or rub. ABDOMEN: Soft. Nontender. No palpable masses or organomegaly. No bruits. EXTREMITIES: No pretibial edema. NEUROLOGIC: Alert and oriented x3. Motor grossly intact. DATA: Electrocardiogram at 8:00 a.m. this morning with sinus bradycardia with sinus arrhythmia, slight ST-segment depressions in leads V3-V6. No significant change compared to yesterday's electrocardiogram. Electrocardiogram performed at 12:51 p.m. today with complaints of left upper arm discomfort. Shows normal sinus rhythm, slight ST depressions in leads I, aVL, V3-V6 consistent with ischemia. Compared to the earlier electrocardiogram the ST segment changes are slightly more prominent. Echocardiogram performed this morning reveals normal left ventricular size and systolic function. Mild concentric LVH except for disproportionate thickening of the basal septum. Normal LV wall motion. Normal right ventricular systolic function. Normal chamber dimensions. No significant valvular abnormalities. LABORATORY DATA: Today with WBC 18.45, hemoglobin 16.5, platelet count ____ PTT 49.0. Sodium 137, potassium 3.4, chloride 101, carbon dioxide 25, BUN 11, creatinine 0.94, random glucose 195. Troponin I this morning 3.070. ASSESSMENT: 1. Status post non-ST elevation myocardial infarction. 2. Reoccurrence of anginal type left upper arm discomfort when his nitro paste was held. Quick resolution with sublingual nitroglycerin. 3. Elevation in blood pressure during complaints of arm discomfort. 4. Electrocardiogram with ST-segment depressions suggestive of lateral myocardial ischemia. No ST elevations on electrocardiogram. 5. Normal left ventricular wall motion and systolic function. 6. No significant valvular abnormalities. 7. Coronary artery disease risk factors include hypertension, dyslipidemia, and diabetes mellitus. all of his glucoses on this admission have been elevated. Hemoglobin A1c is still pending. RECOMMENDATIONS: 1. Continue nitro paste 1 inch q. 6 hours uninterrupted. When he was on this, he did not have any further anginal symptoms. If he has breakthrough anginal symptoms on topical nitrates, would start him on intravenous nitroglycerin. This would require him being transferred to a different unit. 2. Continue low dose metoprolol. 3. Continue aspirin and clopidogrel. 4. The patient was on clopidogrel for the past few years. 5. Continue intravenous heparin by weight-based protocol. 6. His potassium level was mildly decreased this morning. He did receive potassium supplementation this morning. 7. N.p.o. after 12:00 midnight. 8. Cardiac catheterization with possible coronary intervention tomorrow. This will be tentatively scheduled for 9:30 a.m. The procedure will tentatively be performed by Dr. Luke Jimenez. 9. We will start IV fluids overnight while the patient is n.p.o. 10. Further recommendations and plans will be based upon the results of cardiac catheterization and any possible coronary intervention. Based on the electrocardiographic changes, suspect the patient has a stenosis involving an LAD diagonal artery or a left circumflex marginal artery. CARROLL
[2016-06-26] MEDS: INSULIN ASPART 100 UNITS/ML 3 ML PEN SC SCH ×2 (16:30→21:00)
[2016-06-26] MEDS: HydrALAZINE HCL 20 MG/ML VIAL IV. PRN ×2 (19:39→23:32)
[2016-06-26] MEDS: NSS + 20MEQ KCL 1000ML 1,000 ML IV SCH (21:09)
[2016-06-26] MEDS: ASPIRIN 81 MG ECTAB PO SCH (21:12)
[2016-06-26] MEDS: LORAZEPAM 0.5 MG TAB PO PRN (21:17)
[2016-06-27] VITALS (14 sets, daily range): BP systolic 131–188; BP diastolic 72–95; PULSE 50–79; TEMP 36.2–36.9; O2SAT 93–97
[2016-06-27] MEDS: HEPARIN 25,000 UNIT/500ML D5W 500 ML IV PRN (02:49)
[2016-06-27] MEDS: ACETAMINOPHEN 325 MG TAB PO PRN ×2 (02:51→12:09)
[2016-06-27] MEDS: NITROGLYCERIN OINT 2% 1GM PACKET EXT SCH ×3 (03:58→15:56)
[2016-06-27] MEDS: NSS + 20MEQ KCL 1000ML 1,000 ML IV SCH (05:29)
[2016-06-27] MEDS: LEVOTHYROXINE 75 MCG TAB PO SCH (05:29)
[2016-06-27] MEDS: LIOTHYRONINE SODIUM 5 MCG TAB PO SCH (05:29)
[2016-06-27 05:37] LABS: HEMATOCRIT 47.7 % (42-52); MEAN CELL VOLUME 87.7 fL (80-100); MEAN CORPUSCULAR HEMOGLOBIN 31.6 pg (25-34); MEAN CORPUSCULAR HGB CONC 36.1 g/dl (32-36); PLATELET COUNT 291 K/uL (130-400); RED BLOOD COUNT 5.44 M/uL (4.7-6.1); WHITE BLOOD COUNT 19.08 K/uL (4.8-10.8)
[2016-06-27 05:56] LABS: PARTIAL THROMBOPLASTIN RATIO 1.6
[2016-06-27 06:08] LABS: ESTIMATED AVERAGE GLUCOSE 134 mg/dl; HA1C FLAG Normal (Normal)
[2016-06-27 06:13] LABS: BUN/CREATININE RATIO 9.5 (10-20); CALCIUM 8.8 mg/dl (8.5-10.1); CREATININE 0.87 mg/dl (0.60-1.40); MAGNESIUM 2.1 mg/dl (1.8-2.4)
--- NOTE | 2016-06-27 06:37 | Progress Note ---
Progress Note Called to bedside approximately 0545 this morning. Nursing notes that patient is having increased pauses of 3 s on the monitor. S: Patient denies any chest pain, no shortness of breath, no palpitations. No lightheadedness or dizziness O: Last VSS at 0345 stable; repeat vitals pending. Patient appears comfortable Cardiac: S1 and S2 with no added sounds or murmurs Respiratory: Vesicular breath sounds, no wheezing or crackles Reviewed telemetry with geochemical laboratory technician; noted to have had 4 episodes of 3s pauses since 0500. He is having frequent pauses lasting approximately 2s but pauses of 3s have increased in frequency since this morning. A: NSTEMI with increasing pauses, duration 3 s on electronic device monitor. P: - Will repeat EKG stat to check for evidence of ongoing ischemia; fortunately patient denies symptoms; though troponin does show slight increase from 12 hours prior - Recommend holding Metoprolol AM dose - Mag level checked, 2.1; potassium level stable at 4.0 - Patient anticipating cardiac catheterization this morning.
[2016-06-27] MEDS ORDERED: HEPARIN IV BOLUS 3,000 UNIT in SYRINGE 0 ML IV STA (06:54)
[2016-06-27] MEDS: METOPROLOL TARTRATE 25 MG TAB PO SCH (07:25)
[2016-06-27] MEDS: INSULIN ASPART 100 UNITS/ML 3 ML PEN SC SCH ×4 (07:48→21:00)
[2016-06-27] MEDS: MULTIVITAMIN TAB PO SCH (07:51)
[2016-06-27] MEDS: CLOPIDOGREL BISULFATE 75 MG TAB PO SCH (07:51)
[2016-06-27] MEDS: LISINOPRIL 10 MG TAB PO SCH (07:51)
[2016-06-27] MEDS: ATORVASTATIN 40 MG TAB PO SCH (07:51)
[2016-06-27] MEDS: CHOLECALCIFEROL 1000 INTER.UNIT TAB PO SCH (07:51)
--- NOTE | 2016-06-27 08:56 | Procedure Note ---
Pre-Mod Sedation Assessment General Date of Moderate Sedation: Jun 27, 2016. Vital Signs: Vital Signs Past 12 Hours Date Time Temp Pulse Resp B/P Pulse Ox O2 Delivery O2 Flow Rate FiO2 06/27/16 07:28 36.6 66 18 131/72 95 06/27/16 06:44 36.2 59 18 133/75 95 Room Air 06/27/16 04:27 Room Air 06/27/16 04:00 Room Air 06/27/16 03:55 36.3 74 16 136/82 96 Room Air 06/27/16 01:26 144/83 06/27/16 00:36 157/85 06/27/16 00:00 Room Air 06/26/16 23:16 37.0 64 20 159/82 96 Room Air 06/26/16 21:18 88 18 148/91 95 Room Air Review Cardiovascular: regular rate, rhythm, no edema, no gallop, no JVD, no murmur, normal peripheral pulses Abdomen: normal bowel sounds, non tender, soft, no organomegaly, no pulsatile mass Lungs: lungs clear Pre-Sedation Airway Assessment Oral Cavity: WNL Able to Visualize Vocal Cords: No Short Thick Neck: No Hx of Sleep Apnea: No Smoking Status: Former Smoker Mallampati Classification: Class III ASA Classification: Class II Procedure Planning Contraindications-for Mod Sed: None Yes Notes The planned sedation has been discussed with the patient and consent obtained. I have identified the patient, determined the appropriateness of sedation and have assessed the patient immediately prior to the procedure. All medicine(s) and interventions are by my order.
[2016-06-27] MEDS ORDERED: NiCARDipine HCL INJ 2.5 MG/ML 10 ML AMP ONE (09:22)
[2016-06-27] MEDS ORDERED: HEPARIN SOD (PORCINE) 1000 UNIT/ML 10 ML VIAL ONE (09:22)
[2016-06-27] MEDS ORDERED: FENTANYL CITRATE INJ 50 MCG/1 ML 2 ML VIAL ONE (09:22)
[2016-06-27] MEDS ORDERED: MIDAZOLAM HCL 1 MG/ML 2ML VIAL ONE ×2 (09:22→10:07)
[2016-06-27] MEDS ORDERED: NITROGLYCERIN/D5W 100MCG/ML 20ML SYR ONE (09:23)
--- NOTE | 2016-06-27 09:35 | CARDIOLOGY PROGRESS NOTE ---
DATE: 06/27/2016 SUBJECTIVE: The patient was seen by me this morning in his telemetry unit room. He denies any further episodes of arm or chest tightness since yesterday morning. He does complain of a persistent headache. He also had mild nausea after taking all of his medications this morning. No orthopnea or PND. No dyspnea. No palpitations, lightheadedness, or syncope. No bleeding complaints. No cerebrovascular or peripheral vascular complaints. MEDICATIONS: This morning were intravenous heparin by weight-based protocol, normal saline with 20 mEq potassium chloride per liter at a rate of 125 mL per hour, metoprolol tartrate 12.5 mg b.i.d., NovoLog sliding scale insulin, atorvastatin 80 mg daily, aspirin 81 mg daily, clopidogrel 75 mg daily, folic acid 1 mg daily, levothyroxine 75 mcg daily, Cytomel 5 mcg daily, multivitamin 1 daily, vitamin D 2000 units daily, lisinopril 10 mg daily, sodium chloride nasal spray as needed, nitroglycerin ointment 1 inch q. 6 hours, and several p.r.n. medications. ALLERGIES: No known drug allergies. The patient had 3.4 second pause this morning on monitor. Monitor history reviewed by me. This morning, metoprolol dose has been held. PHYSICAL EXAMINATION: GENERAL: Shows him to be in no distress. VITAL SIGNS: Oral temperature this morning 36.6. He has had no temperature elevations during this admission. Pulse 66. Blood pressure 131/72, pulse oximetry room air 95%. NECK: No jugular venous distention. LUNGS: Normal respiratory effort. Clear. No rales or wheezes. HEART: Regular rate and rhythm. S1, S2 normal. No S3 or S4. No murmur or rub. ABDOMEN: Soft. Nontender. No palpable masses or organomegaly. No bruits. EXTREMITIES: No pretibial edema. No cyanosis or clubbing. PULSES: Distal pulses in all extremities strongly palpable. NEUROLOGICAL: Alert and oriented x3. Motor grossly intact. PSYCHIATRIC: Affect is normal. DATA: Electrocardiogram this morning with sinus bradycardia, rate of [address] depressions I, aVL, V3-V6 suggestive of ischemia. However, no diagnostic ST-segment abnormalities of ischemia or injury. LABORATORY DATA: Today with WBC 19.08. Yesterday the WBC was 18.45. The absolute neutrophil count yesterday was 14.08. Absolute monocyte count 1.47. Hemoglobin today 17.2 with hematocrit 47.7. Platelet count 291. PTT at 5:10 a.m. 41.1. Metabolic profile - sodium 141, potassium 4.0, chloride 106, carbon dioxide 24, BUN 8, creatinine 0.87, random glucose 132. Magnesium 2.1. Troponin I 2.480. Troponin yesterday afternoon was 2.230. Yesterday morning it was 3.070. Hemoglobin A1c has returned at 6.3. ASSESSMENT: 1. Status post non-ST elevation myocardial infarction. Electrocardiogram with lateral ST-segment changes suggestive of ischemia. 2. Normal left ventricular systolic function and wall motion on echocardiography. 3. No anginal type symptoms since yesterday morning. The episode yesterday morning occurred when his nitroglycerin ointment was held for headache. 4. Sinus pauses. These continue to occur despite his metoprolol dose being lowered to 12.5 mg b.i.d. They are asymptomatic. 5. No ventricular arrhythmias. 6. No signs or symptoms of congestive heart failure. 7. No cerebrovascular or peripheral vascular complaints. 8. Coronary artery disease risk factors include dyslipidemia, hypertension, diabetes mellitus, family history of coronary artery disease, and prior cigarette smoking history. PLAN: 1. Discontinue metoprolol. 2. Cardiac catheterization this morning. This to be performed by Dr. Luke Jimenez. 3. The procedure, risk, benefits, and alternatives of cardiac catheterization and coronary intervention were extensively discussed with the patient by me. He consents to procedure. He is aware of the nature of the [facility] PCI program with offsite CABG surgical backup. 4. Further recommendations and plans will be based upon the results of coronary angiogram and any possible coronary intervention. CARROLL
[2016-06-27] MEDS ORDERED: ADENOSINE IV SOLN 3 MG/ML 20 ML VIAL IV ONE (10:03)
[2016-06-27] MEDS ORDERED: ATROPINE SULFATE 0.1 MG/ML 10 ML SYR ONE (11:03)
[2016-06-27] MEDS ORDERED: CLOPIDOGREL BISULFATE 300 MG TAB PO ONE (11:03)
--- NOTE | 2016-06-27 11:12 | Procedure Note ---
Post-Mod Sedation Assessment General Date of Moderate Sedation Jun 27, 2016. Vital Signs: Vital Signs Past 12 Hours Date Time Temp Pulse Resp B/P Pulse Ox O2 Delivery O2 Flow Rate FiO2 06/27/16 07:28 36.6 66 18 131/72 95 06/27/16 06:44 36.2 59 18 133/75 95 Room Air 06/27/16 04:27 Room Air 06/27/16 04:00 Room Air 06/27/16 03:55 36.3 74 16 136/82 96 Room Air 06/27/16 01:26 144/83 06/27/16 00:36 157/85 06/27/16 00:00 Room Air 06/26/16 23:16 37.0 64 20 159/82 96 Room Air Review - Discharge Criteria Vital Signs Stable: Yes Alert/Oriented/Conversant: Yes Returned to Baseline Mental St: Yes Nausea Absent/Minimal: Yes Pain/Discomfort/Absent/Minimal: Yes Normal/Baseline Respirations: Yes Active Bleeding?: No Pt Received D/C Instructions: N/A Prescriptions Given: None Specific Proced. D/C Criteria Distal Pulses Present (Cardiac: Yes Groin site assessed-Card Cath: N/A Voided Prior To Discharge: N/A Discharged Patients Adult Escort/Transportation: Yes
--- NOTE | 2016-06-27 11:47 | Cardiac Catheterization ---
Procedure Note Procedure Date Jun 27, 2016. Pre-Procedure Diagnosis Non STEMI AUC Score 8 Post-Procedure Diagnosis Severe CAD, Successful PCI, Normal Intracardiac Pressures Procedure(s) Performed Coronary Angiography, Left Heart Cath, Fractional Flow [employer] Dr. Jimenez Research Development Manager(s) Glunt Estimated Blood Loss 20 Medication(s) Clopidogrel, Heparin, Nicardipine, Nitroglycerin, Versed, Lidocaine 1%, Adenosine Summary of Findings Indication: NSTEMI Access: 6Fr Right radial artery Catheters: Landis, JR4, AR2; JL3.5; EBU 3.5 guide Findings: LM - Luminal irregularities LAD - Large caliber vessel, 50% mid LAD stenosis after take-off of D2, distal LAD with luminal irregularities and wraps around apex. Small 1st and 2nd diagonal with mild disease. Circumflex - 30-40% ostial stenosis, proximal segment aneurysmal, 40% mid stenosis prior to take off largest obtuse marginal (OM2), 30% stenosis after take-off of OM in small distal circumflex. OM2 with 99% stenosis in mid segment. Distal vessel partially fills via left to left collaterals. RCA - Dominant vessel, 30% mid stenosis, 30% distal stenosis. PDA and PLBs with luminal irregularities. When attempting to engage RCA, patient became bradycardic to 20s requiring atropine. FFR - mid LAD 0.9 LVEDP - 10 Arterial Closure: TR Band PCI: Antithrombotic therapy: Heparin, Plavix Procedure: Following FFR of mid LAD, BMW wire across mid OM2 lesion into distal vessel FFR wire placed in distal circumflex OM2 lesion predilated with 2.0 x 12 compliant balloon 2.25 x 14 Resolute NIC placed across lesion IC nitroglycerin administered for distal spasm Stent Post-dilated with 2.5 NC Trek balloon. Post procedure angiogram showed RAÚL 3 flow, minimal residual stenosis and no evidence of dissection Summary: 1. Severe single vessel coronary artery disease - 99% OM2 stenosis - Moderate mid LAD disease (FFR negative for flow limiting disease) - Mild-moderate disease in circumflex, RCA 2. Normal intracardiac filling pressure 3. Successful PCI of OM2 with 2.25 x 14 Resolute NIC Recommendations: Return to telemetry Reloaded with plavix 300mg in bolt labeler Continue Dual-antiplatelet therapy with ASA/Plavix for at least 1 year Continue high dose statin, JB. Beta-nico as able Control borderline diabetes Cardiac rehab Hemodynamics Rest Ao: 110/52/78 Final Ao: 160/82/116 LV: 152/10 Recommendations PCI without planned CABG Specimens None Radiation Exposure (mGy) 3927 Contrast (mls) 190 visi Fluids (cc crystalloids) 157 NSS Drains None Anesthesia Moderate Procedural Complication(s) None Disposition PCU ACC Data Cardiac Status Clinical evaluation leading to the procedure CAD Presntation: Non STEMI Anginal Classification: CCS IV Heart Failure: No, NYHA Class: CCS I Cardiogenic Shock w/in 24Hrs: No Cardiac Arrest w/in 24Hrs: No Imaging studies past 6 months: Yes Stress studies past 6 months: No Standard Exercise Stress Test: No Stress Echocardiogram: No Stress Testing w/SPECT MPI: No Cardiac CTA: No Coronary Anatomy Dominant: Right Left Main (% Stenosis): Normal LAD (% Stenosis): Mid (50) Circumflex (% Stenosis): Ostial (30), Mid (40), Distal (30) OM2 (% Stenosis): Mid (99) RCA (% Stenosis): Mid (30), Distal (30) Diagnostic Physician's Name: Luke Jimenez MD Status: Elective Closure Device Percutaneous Entry Location: Radial Closure Device: Radial Band Recommendations: PCI without planned CABG PCI Indication: PCI for high risk Non-STEMI Lesion Segment Name: OM2 Culprit Artery: Yes Stenosis Prior to Rx (%): 99 Chronic Total Occlusion: No IVUS: No FFR: No Previously Treated Lesion: No Lesion Complexity: Non-High/Non-C Lesion Length (mm): 12 Thrombus Present: No Bifurcation Lesion: No Guidewire Across Lesion: Yes Guidewire: Stenosis Post-Procedure (%): 0 Post-Procedure RAÚL Flow: 3 Device(s) Deployed: Yes Type of Device(s): Resolute 2.25 x 14 Lesion #2 Segment Name: mid LAD Culprit Artery: No Stenosis Prior to Rx (%): 50 Chronic Total Occlusion: No IVUS: No FFR: Yes Ratio: greater than 0.75% Pre-Procedure RAÚL Flow: 3 Previously Treated Lesion: No Intraprocedure Events Significant Dissection: No Perforation: No
[2016-06-27] MEDS ORDERED: ACETAMINOPHEN 325 MG TAB PO PRN (13:45)
[2016-06-27] MEDS ORDERED: NURSING VERBAL MED ORDER ONE ×2 (13:45→17:30)
[2016-06-27] MEDS ORDERED: SODIUM CHLORIDE 0.9% 1000ML 1,000 ML IV SCH (13:45)
[2016-06-27] MEDS: LORAZEPAM 0.5 MG TAB PO PRN (18:31)
[2016-06-27] MEDS: ONDANSETRON INJ 2 MG/ML 2 ML VIAL IV PRN (18:34)
--- NOTE | 2016-06-27 19:43 | Progress Note ---
Subjective Date of Service: Jun 27, 2016. Subjective Pt evaluation today including: conversation w/ patient, physical exam, chart review, lab review Problem List Medical Problems: (1) Abnormal EKG Status: Acute (2) Elevated troponin Status: Acute (3) Left sided chest pain Status: Acute Review of Systems Constitutional: No chills, No fatigue, No fever, No problem reported, No see HPI, No sweats, No weakness, No weight loss Eyes: No diplopia, No discharge, No eye pain, No problem reported, No redness, No see HPI, No worsening of vision ENT: No dental problems, No hearing loss, No nasal symptoms, No problem reported, No see HPI, No sore throat, No tinnitus, No trouble swallowing, No unusual epistaxis Respiratory: No cough, No dyspnea at rest, No dyspnea on exertion, No hemoptysis, No problem reported, No see HPI, No shortness of breath, No sputum, No wheezing Cardiac: No PND, No chest pain, No claudication, No edema, No orthopnea, No palpitations, No problem reported, No see HPI Abdomen: No GI bleeding, No constipation, No diarrhea, No nausea, No pain, No problem reported, No see HPI, No vomiting Musculoskeletal: No calf pain, No joint pain, No muscle pain, No problem reported, No see HPI, No swelling Neurologic: No balance problems, No memory loss, No numbness/tingling, No paralysis, No problem reported, No see HPI, No vertigo, No weakness Psychiatric: No anhedonism, No anxiety, No depression symptoms, No insomnia, No problem reported, No see HPI, No substance abuse Heme: No abnormal bleeding/bruising, No clotting problems, No night sweats, No problem reported, No see HPI, No swollen lymph nodes Endo: No excessive thirst, No excessive urination, No fatigue, No problem reported, No see HPI Skin: No bleeding, No color change, No itch, No new/changing skin lesions, No problem reported, No rash, No see HPI Medications Current Inpatient Medications Medications (Trade) Dose Ordered Sig/Jocelynn Route Start Time Stop Time Status Last Admin Dose Admin Magnesium Hydroxide (Milk Of Magnesia Susp) 30 ml Q12H PRN PO 06/24/16 18:00 07/24/16 17:59 Ondansetron HCl (Zofran Inj) 4 mg Q6H PRN IV 06/24/16 18:00 07/24/16 17:59 06/27/16 18:34 4 MG Nitroglycerin (Nitrostat Tab) 0.4 mg UD PRN SL 06/24/16 18:00 07/24/16 17:59 06/26/16 12:45 0.4 MG Morphine Sulfate (MoRPHine SULFATE INJ) 2 mg Q30M PRN IV 06/24/16 18:00 07/08/16 17:59 Polyethylene (Miralax Powder Packet) 17 gm DAILY PRN PO 06/24/16 18:00 07/24/16 17:59 Lisinopril (Zestril Tab) 10 mg QAM PO 06/25/16 09:00 07/25/16 08:59 06/27/16 07:51 10 MG Miscellaneous (Iv Fluids Completed) 1 ea PRN PRN N/A 06/24/16 21:30 06/24/17 21:29 Hydralazine HCl (HydrALAZINE INJ) 10 mg Q4H PRN IV. 06/24/16 22:00 07/24/16 21:59 06/26/16 23:32 10 MG Sodium Chloride ([place] Nasal [place]) 1 sprays PRN PRN NA 06/25/16 05:30 07/25/16 05:29 06/25/16 06:17 1 SPRAYS Aspirin (Ecotrin Tab) 81 mg QPM PO 06/25/16 21:00 07/25/16 20:59 06/26/16 21:12 81 MG Clopidogrel Bisulfate (plAVix TAB) 75 mg DAILY PO 06/25/16 10:15 07/25/16 10:14 06/27/16 07:51 75 MG Folic Acid (Folvite Tab) 1 mg DAILY PO 06/25/16 10:15 07/25/16 10:14 06/27/16 07:50 1 MG Levothyroxine Sodium (Synthroid Tab) 75 mcg DAILYBB PO 06/25/16 10:15 07/25/16 10:14 06/27/16 05:29 75 MCG Liothyronine Sodium (Cytomel Tab) 5 mcg DAILYBB PO 06/25/16 10:15 07/25/16 10:14 06/27/16 05:29 5 MCG Multivitamins (Multivitamin Tab) 1 tab DAILY PO 06/25/16 10:15 07/25/16 10:14 06/27/16 07:51 1 TAB Cholecalciferol (Vitamin D Tab) 2,000 inter.unit DAILY PO 06/25/16 10:15 07/25/16 10:14 06/27/16 07:51 2,000 INTER.UNIT Atorvastatin Calcium (Lipitor Tab) 80 mg QAM PO 06/26/16 09:00 07/26/16 08:59 06/27/16 07:51 80 MG Lorazepam (Ativan Tab) 0.5 mg Q6 PRN PO 06/25/16 15:45 07/25/16 15:44 06/27/16 18:31 0.5 MG Insulin Aspart (novoLOG ASPART) SLIDING SCALE G... ACHS SC 06/26/16 16:30 07/26/16 16:29 Glucose (Glucose 40% Gel) 15-30 GRAMS 15 GRAMS... UD PRN PO 06/26/16 12:30 07/26/16 12:29 Glucose (Glucose Chew Tab) 4-8 Tablets 4 Tabl... UD PRN PO 06/26/16 12:30 07/26/16 12:29 Dextrose (Dextrose 50% 50ML Syringe) 25-50ML OF 50% DW IV FOR... UD PRN IV 06/26/16 12:30 07/26/16 12:29 Glucagon 1 mg 1 mg UD PRN SQ 06/26/16 12:30 07/26/16 12:29 Sodium Chloride (Nss 1000ml) 1,000 ml @ 75 mls/hr [id number] IV 06/27/16 13:45 06/27/16 20:24 06/27/16 15:56 75 MLS/HR Acetaminophen (Tylenol Tab) 650 mg Q4H PRN PO 06/27/16 13:45 07/27/16 13:44 06/27/16 18:32 650 MG Objective Vital Signs Date Time Temp Pulse Resp B/P Pulse Ox O2 Delivery O2 Flow Rate FiO2 06/27/16 16:00 Room Air 06/27/16 15:17 36.9 63 20 150/89 94 06/27/16 13:30 51 16 165/94 96 Room Air 06/27/16 13:00 50 16 165/91 96 Room Air 06/27/16 12:30 56 14 167/94 96 Room Air 06/27/16 12:15 58 16 188/95 95 Room Air 06/27/16 12:00 Room Air 06/27/16 12:00 60 16 164/95 96 Room Air 06/27/16 11:51 57 16 167/93 95 Room Air 06/27/16 11:39 36.5 53 16 144/84 97 Room Air 06/27/16 11:20 76 16 130/88 98 Room Air 06/27/16 11:05 74 16 142/80 99 Nasal Cannula 6 06/27/16 08:00 Room Air 06/27/16 07:28 36.6 66 18 131/72 95 06/27/16 06:44 36.2 59 18 133/75 95 Room Air 06/27/16 04:27 Room Air 06/27/16 04:00 Room Air 06/27/16 03:55 36.3 74 16 136/82 96 Room Air 06/27/16 01:26 144/83 06/27/16 00:36 157/85 06/27/16 00:00 Room Air 06/26/16 23:16 37.0 64 20 159/82 96 Room Air 06/26/16 21:18 88 18 148/91 95 Room Air 06/26/16 20:10 95 Room Air 06/26/16 19:37 36.8 71 20 169/99 95 Room Air Physical Exam General Appearance: no apparent distress Eyes: normal inspection, EOMI ENT: normal ENT inspection, hearing grossly normal Neck: supple Respiratory/Chest: chest non-tender, lungs clear, normal breath sounds, no respiratory distress, no accessory muscle use Cardiovascular: regular rate, rhythm, no edema, no gallop, no JVD, no murmur Abdomen: normal bowel sounds, non tender, soft, no pulsatile mass Extremities: normal range of motion, non-tender, normal inspection, no pedal edema 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, no motor/sensory deficits, alert, normal mood/affect, oriented x 3 Skin: normal color, warm/dry, no rash Laboratory Results Last 24 Hours Test 06/26/16 20:30 06/27/16 05:10 06/27/16 07:46 06/27/16 10:32 Bedside Glucose 160 mg/dl 156 mg/dl White Blood Count 19.08 K/uL Red Blood Count 5.44 M/uL Hemoglobin 17.2 g/dL Hematocrit 47.7 % Mean Corpuscular Volume 87.7 fL Mean Corpuscular Hemoglobin 31.6 pg Mean Corpuscular Hemoglobin Concent 36.1 g/dl RDW Standard Deviation 43.8 fL RDW Coefficient of Variation 13.7 % Platelet Count 291 K/uL Mean Platelet Volume 11.0 fL Activated Partial Thromboplast Time 41.1 SECONDS Partial Thromboplastin Ratio 1.6 Sodium Level 141 mmol/L Potassium Level 4.0 mmol/L Chloride Level 106 mmol/L Carbon Dioxide Level 24 mmol/L Anion Gap 11.0 mmol/L Blood Urea Nitrogen 8 mg/dl Creatinine 0.87 mg/dl Est Creatinine Clear Calc Drug Dose 105.3 ml/min Estimated GFR () 112.6 Estimated GFR (Non- 97.2 BUN/Creatinine Ratio 9.5 Random Glucose 132 mg/dl Calcium Level 8.8 mg/dl Magnesium Level 2.1 mg/dl Troponin I 2.480 ng/ml Hepatitis C Antibody Screen NEG Kaolin Activated Coagulation Time 209 SECONDS Test 06/27/16 10:53 06/27/16 11:42 06/27/16 15:45 06/27/16 16:24 Kaolin Activated Coagulation Time 240 SECONDS Bedside Glucose 114 mg/dl 125 mg/dl Activated Partial Thromboplast Time 25.9 SECONDS Partial Thromboplastin Ratio 1.0 Assessment and Plan NSTEMI S/P cardiac cath 06/27 -Severe single vessel 99% OM2 stenosis S/P Successful PCI of OM2 with 2.25 x 14 Resolute NIC -Moderate mid LAD disease (FFR negative for flow limiting disease) - Mild-moderate disease in circumflex, RCA -Normal intracardiac filling pressure -continue ASA/Plavix -LDL was 127, continue statin -HgbA1C was 6.3, start Metformin in 48 hours HTn crisis -continue on BP meds -currently controlled Hypothyroidism: - Continue liothyronine and Synthroid - TSH is 4.8, need to repeat as an out patient TIA like symptoms: continue Aspirin and Plavix leukocytosis / likely reactive Full code DVT prophylaxis: Enoxaparin
[2016-06-27] MEDS: ASPIRIN 81 MG ECTAB PO SCH (21:21)
[2016-06-28] VITALS: BP 154/93; PULSE 80; TEMP 36.6; O2SAT 96
[2016-06-28 03:53] VITALS: BP 148/87; PULSE 82; TEMP 36.7; O2SAT 96
[2016-06-28] MEDS: LEVOTHYROXINE 75 MCG TAB PO SCH (05:23)
[2016-06-28] MEDS: LIOTHYRONINE SODIUM 5 MCG TAB PO SCH (05:24)
[2016-06-28 07:35] VITALS: BP 137/90; PULSE 75; TEMP 36.9; O2SAT 96
[2016-06-28 07:49] LABS: BASO % 0.1 %; BASO ABS # 0.02 K/uL (0-0.2); COMPLETE YES; EOS % 1.2 %; IG% 0.4 %; LYMPH % 11.1 %; LYMPH ABS # 1.81 K/uL (1.2-3.4); MEAN CELL VOLUME 87.5 fL (80-100); MEAN CORPUSCULAR HEMOGLOBIN 31.7 pg (25-34); MEAN CORPUSCULAR HGB CONC 36.2 g/dl (32-36); MEAN PLATELET VOLUME 10.6 fL (7.4-10.4); MONO % 9.5 %; NEUT % 77.7 %; PLATELET COUNT 263 K/uL (130-400); RED BLOOD COUNT 5.14 M/uL (4.7-6.1); WHITE BLOOD COUNT 16.25 K/uL (4.8-10.8)
[2016-06-28] MEDS: ATORVASTATIN 40 MG TAB PO SCH (08:16)
[2016-06-28] MEDS: CHOLECALCIFEROL 1000 INTER.UNIT TAB PO SCH (08:16)
[2016-06-28] MEDS: MULTIVITAMIN TAB PO SCH (08:16)
[2016-06-28] MEDS: CLOPIDOGREL BISULFATE 75 MG TAB PO SCH (08:16)
[2016-06-28] MEDS: LISINOPRIL 10 MG TAB PO SCH (08:16)
[2016-06-28] MEDS: INSULIN ASPART 100 UNITS/ML 3 ML PEN SC SCH ×2 (08:17→11:00)
[2016-06-28 08:18] LABS: BUN/CREATININE RATIO 13.7 (10-20); CALCIUM 9.1 mg/dl (8.5-10.1); CREATININE 0.73 mg/dl (0.60-1.40); MAGNESIUM 2.1 mg/dl (1.8-2.4); POTASSIUM 3.8 mmol/L (3.5-5.1)
[2016-06-28 08:20] LABS: PHOSPHORUS 2.4 mg/dl (2.5-4.9)
[2016-06-28] MEDS ORDERED: METOPROLOL SUCC 25MG EXT REL TAB PO SCH (09:00)
[2016-06-28] MEDS ORDERED: LISINOPRIL 10 MG TAB PO ONE (09:15)
--- NOTE | 2016-06-28 09:26 | PROGRESS NOTE ---
DATE: 06/28/2016 SUBJECTIVE: The patient was seen by me this morning in his telemetry unit room. He states he is feeling very well. No chest tightness. No arm tightness. No anginal equivalent type symptoms. No palpitations, lightheadedness, syncope, or peripheral edema. No leg pain. No abdominal pain. No pulmonary, GI, or urinary complaints. No pain in his right radial catheterization site. No cerebrovascular or peripheral vascular complaints. CURRENT MEDICATIONS: NovoLog sliding scale insulin, atorvastatin 80 mg daily, aspirin 81 mg daily, clopidogrel 75 mg daily, folic acid 1 mg daily, levothyroxine 75 mcg daily, Cytomel 5 mcg daily, multivitamin 1 daily, vitamin D 2000 units daily, lisinopril 10 mg daily, and several p.r.n. medications. ALLERGIES: No known drug allergies. PHYSICAL EXAMINATION: GENERAL: The patient is sitting up in his bed. No distress. Monitor reviewed by me. It reveals sinus tachycardia with rates in the low 100s. VITAL SIGNS: Blood pressure this morning is 137/90. Overnight, it was 154/93 and 148/87. Pulse oximetry on room air 96%. NECK: No jugular venous distention. LUNGS: Normal respiratory effort. Clear. No rales or wheezes. HEART: Regular rate and rhythm. S1 and S2 normal. No S3 or S4. No murmur or rub. ABDOMEN: Soft. Nontender. No palpable masses or organomegaly. No bruits. EXTREMITIES: Right radial catheterization site without bleeding or hematoma. No evidence of arterial insufficiency in the right hand. Right radial pulse weakly palpable. No pretibial edema. No calf tenderness. NEUROLOGIC: Alert and oriented x3. Motor grossly intact. PSYCHIATRIC: Affect is normal. LABORATORY DATA: Today with sodium 137, potassium 3.8, chloride 104, carbon dioxide 21, BUN 10, creatinine 0.73, and random glucose 138. Magnesium 2.1. CBC with WBC 16.25, hemoglobin 16.3, hematocrit 45.0, and platelet count 263. ASSESSMENT: 1. Status post non-ST elevation myocardial infarction. 2. Subtotal mid left circumflex marginal stenosis on cardiac catheterization performed yesterday by Dr. Luke Jimenez. Successful intervention to the stenosis with deployment of a 2.25 x 14-mm Resolute drug-eluting stent. Post dilated with a 2.5-mm diameter noncompliant balloon. 0% residual stenosis. No coronary, cardiac, or vascular complications post PCI. No anginal symptoms post PCI. 3. Normal LV systolic function and wall motion on echocardiography. 4. Hypertension. 5. Sinus tachycardia. His beta nico was stopped during this admission because of sinus pauses. Suspect that the increased vagal tone secondary to myocardial ischemia may have been contributory. Since his successful intervention yesterday, his heart rate has increased. 6. Dyslipidemia. RECOMMENDATIONS: 1. The patient can be discharged home. 2. Cardiology followup visit with me or one of the [facility] physician's assistants in 2-4 weeks. 3. The patient was instructed to take his aspirin and clopidogrel on a daily basis without interruption. 4. The patient was instructed to call 911 immediately for any recurrence of sustained chest tightness or other anginal type pains. 5. Increase lisinopril dose to 20 mg daily. This has been done by me. 6. Restart beta nico. Metoprolol succinate ER 25 mg daily. First dose today. 7. Maximum dose of atorvastatin. 8. Follow up of his diabetes mellitus by his primary care provider. ADDENDUM: The patient had elevations in his white blood cell count during this admission. Afebrile. No symptoms of infection. It may have been secondary to stress of his acute coronary syndrome. His white blood cell count has decreased today compared to yesterday. Stable renal function and hemoglobin post PCI yesterday.
[2016-06-28] MEDS ORDERED: LSN20 PO (11:26)
[2016-06-28] MEDS ORDERED: CLOP1TAB15 PO (11:26)
[2016-06-28] MEDS ORDERED: ATOR80TA PO (11:26)
[2016-06-28] MEDS ORDERED: NTRSLP4 SL (11:26)
[2016-06-28] MEDS ORDERED: TPRSR25 PO (11:26)
--- NOTE | 2016-06-28 11:28 | Discharge Instructions ---
Discharge Instructions Admission Admission Date: Jun 25, 2016 at 16:39 Admission Diagnosis: Chest Tightness. Discharge Care Plan - Problem: Medical Problems: (1) Abnormal EKG (2) Elevated troponin (3) Left sided chest pain Care Plan - Goal(s): Improve function Care Plan - Instructions: Recommended Home Diet: 1800 Onur Wt Reduction * Call 911 or immediately go to the Hospital Emergency Department nearest your location if you feel you have an emergent problem. Inpt VTE Proph given/why not?: Enoxaparin (Lovenox)SQ Follow Up Follow-Up: follow up with marine electrician apprentice as scheduled Laboratory Results Test Results: Hemoglobin A1c Test 06/25/16 17:31 Range/Units Estimated Average Glucose 134 mg/dl Hemoglobin A1c 6.3 H 4.5-5.6 % Lipid Panel Test 06/25/16 08:10 Range/Units Triglycerides Level 251 H 0-150 mg/dl Cholesterol Level 221 H 0-200 mg/dl HDL Cholesterol 44 mg/dl Cholesterol/HDL Ratio 5.0 LDL Cholesterol, Calculated 127 mg/dl Susan Orta Recommendations: Call your doctor if: * Temperature above 101 degrees * Pain not relieved by pain medicine ordered * There is increased drainage or redness from any incision * You have any unanswered questions or concerns. Your Doctors Instructions noted above were prepared by provider Arleth Og.
[2016-06-28 11:33] VITALS: BP 137/90; PULSE 75; TEMP 36.9; O2SAT 96
[2016-06-28 11:34] VITALS: BP 156/105; PULSE 84; TEMP 37; O2SAT 96
--- NOTE | 2016-06-28 12:07 | Discharge Summary ---
Discharge Summary Admission Date: Jun 25, 2016 at 16:39 Discharge Date: Jun 28, 2016 Discharge Disposition: Home Problems/Secondary Diagnoses: NSTEMI S/P cardiac cath 06/27 Dyslipidemia HTn crisis Hypothyroidism: TIA like symptoms: continued Aspirin and Plavix leukocytosis / likely reactive Medication Reconciliation New Medications: Atorvastatin Calcium (Lipitor) 80 Mg Tab 1 TAB PO DAILY for 30 Days, #30 TAB 5 Refills Lisinopril (Lisinopril) 20 Mg Tab 20 MG PO QAM for 30 Days, #30 TAB 1 Refill Metoprolol Succinate (Metoprolol Succinate ER) 25 Mg Tabcr 25 MG PO QAM for 30 Days, #30 TAB 1 Refill Nitroglycerin (Nitrostat) 0.4 Mg/1 Tab Subl 0.4 MG SL UD PRN for Chest Pain for 30 Days, #25 TAB Continued Medications: Aspirin (Aspirin Ec) 81 Mg Tab 81 MG PO QPM Cholecalciferol (Vitamin D3) 2,000 Unit Cap 2000 INTER.UNIT PO DAILY, CAP Clopidogrel (Plavix) 75 Mg Tab 75 MG PO DAILY for 30 Days, #30 TAB 9 Refills (This prescription has been renewed) Folic Acid (Folvite) 1 Mg Tab 1 MG PO DAILY, TAB Levothyroxine Sodium (Synthroid) 75 Mcg Tab 75 MCG PO DAILY, TAB Liothyronine Sodium (Liothyronine Sodium) 5 Mcg Tab 5 MCG PO DAILY Multivitamin (Multivitamin) Tab 1 TAB PO DAILY, TAB Referrals At Discharge Follow up Referrals: Payroll Master Referral - Within 1-2 Weeks with Ashvin Nazario M.D. Discharge Exam Review of Systems: Constitutional: No chills, No fatigue, No fever, No problem reported, No sweats, No weakness, No weight loss Eyes: No diplopia, No discharge, No eye pain, No problem reported, No redness, No worsening of vision ENT: No dental problems, No hearing loss, No nasal symptoms, No problem reported, No sore throat, No tinnitus, No trouble swallowing, No unusual epistaxis Respiratory: No cough, No dyspnea at rest, No dyspnea on exertion, No hemoptysis, No problem reported, No shortness of breath, No sputum, No wheezing Cardiovascular: No PND, No chest pain, No claudication, No edema, No orthopnea, No palpitations, No problem reported Abdomen: No GI bleeding, No constipation, No diarrhea, No nausea, No pain, No problem reported, No vomiting Musculoskeletal: No calf pain, No joint pain, No muscle pain, No problem reported, No swelling Neurologic: No balance problems, No memory loss, No numbness/tingling, No paralysis, No problem reported, No vertigo, No weakness Endocrine: No excessive thirst, No excessive urination, No fatigue, No problem reported Hematologic / Lymphatic: No abnormal bleeding/bruising, No clotting problems , No night sweats, No problem reported, No swollen lymph nodes Integumentary: No bleeding, No color change, No itch, No new/changing skin lesions, No problem reported, No rash Physical Exam: General Appearance: WD/WN, no apparent distress Eyes: normal inspection, EOMI ENT: normal ENT inspection, hearing grossly normal Neck: supple Respiratory/Chest: chest non-tender, lungs clear, normal breath sounds, no respiratory distress Cardiovascular: regular rate, rhythm, no edema, no gallop, no JVD, no murmur Abdomen / GI: normal bowel sounds, non tender, soft, no organomegaly, no pulsatile mass, normal rectal exam Extremities: normal inspection, no calf tenderness, normal capillary refill , no pedal edema 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 currently chest pain free and cleared for discharge. please refer to more details below; NSTEMI S/P cardiac cath 06/27 -Severe single vessel 99% OM2 stenosis S/P Successful PCI of OM2 with 2.25 x 14 Resolute NIC -Moderate mid LAD disease (FFR negative for flow limiting disease) - Mild-moderate disease in circumflex, RCA -Normal intracardiac filling pressure -started on ASA/Plavix -LDL was 127, continue lipitor 80mg daily -HgbA1C was 6.3, start diabetic diet HTn crisis -started on lisinopril/toprol XL -currently controlled Hypothyroidism: - Continued liothyronine and Synthroid - TSH is 4.8, need to repeat as an out patient TIA like symptoms: continued Aspirin and Plavix leukocytosis / likely reactive This includes examination of the patient, discharge planning, medication reconciliation, and communication with other providers. Discharge Instructions Please refer to the electronic Patient Visit Report (Discharge Instructions) for additional information.
[2016-06-29] MEDS ORDERED: LISINOPRIL 20 MG TAB PO SCH (09:00)
[2016-11-22] MEDS ORDERED: METO25TA56 PO (15:14)
[2016-11-22] MEDS ORDERED: CLOP1TAB15 PO (15:14)
== END 2016-06-28 12:16 | disposition home or self-care (01) | DRG 247 ==
LOC: ENRESERVTM → ENRESERVDT → EDBD 15:54 → C.EDA 15:55 → C.MED 18:06 → OBSVTOIN 06-25 16:39 → C.2T 06-27 11:36
PROVIDERS: ADMIT Family Medicine; ATTEND Internal Medicine
PROC: 027034Z Dilation of Coronary Artery, One Artery with Drug-eluting Intraluminal Device, Percutaneous Approach (ICD-10-PCS; principal; 2016-06-27 09:30)
PROC: 4A023N7 Measurement of Cardiac Sampling and Pressure, Left Heart, Percutaneous Approach (ICD-10-PCS; principal; 2016-06-27 09:30)
PROC: B2111ZZ Fluoroscopy of Multiple Coronary Arteries using Low Osmolar Contrast (ICD-10-PCS; principal; 2016-06-27 09:30)
DX: I21.4 Non-ST elevation (NSTEMI) myocardial infarction (principal); I16.9 Hypertensive crisis, unspecified; I16.0 Hypertensive urgency; R07.89 Other chest pain; E03.9 Hypothyroidism, unspecified; E78.5 Hyperlipidemia, unspecified; I25.10 Atherosclerotic heart disease of native coronary artery without angina pectoris; R00.1 Bradycardia, unspecified; R00.0 Tachycardia, unspecified; E11.9 Type 2 diabetes mellitus without complications; Z87.891 Personal history of nicotine dependence; R79.89 Other specified abnormal findings of blood chemistry; D72.829 Elevated white blood cell count, unspecified; R94.31 Abnormal electrocardiogram [ECG] [EKG]; G47.30 Sleep apnea, unspecified; F41.9 Anxiety disorder, unspecified; Z82.49 Family history of ischemic heart disease and other diseases of the circulatory system; T46.3X5A Adverse effect of coronary vasodilators, initial encounter; Y92.239 Unspecified place in hospital as the place of occurrence of the external cause; R51 Headache; R79.82 Elevated C-reactive protein (CRP); Z79.82 Long term (current) use of aspirin; Z79.02 Long term (current) use of antithrombotics/antiplatelets; Z79.899 Other long term (current) drug therapy

== ENCOUNTER → 2016-07-06 | Outpatient (CLI) | payer OTHER ==
[~2016-07-06] MED LIST: ASPI81TA28 PO; ATOR80TA PO; CHOL2000 PO; CLOP1TAB15 PO; FOLI1TAB7 PO; LEVO75TA PO; LIOT5TAB9 PO; LSN20 PO; METO25TA56 PO; MULT-506 PO; NTRSLP4 SL; TPRSR25 PO
[2016-07-06 17:04] LABS: BASO % 0.4 %; BASO ABS # 0.05 K/uL (0-0.2); COMPLETE YES; HEMATOCRIT 41.4 % (42-52); IG% 0.7 %; LYMPH % 21.8 %; LYMPH ABS # 2.74 K/uL (1.2-3.4); MEAN CELL VOLUME 88.1 fL (80-100); MEAN CORPUSCULAR HEMOGLOBIN 30.6 pg (25-34); MEAN CORPUSCULAR HGB CONC 34.8 g/dl (32-36); MEAN PLATELET VOLUME 10.3 fL (7.4-10.4); MONO % 6.3 %; NEUT % 70.8 %; PLATELET COUNT 406 K/uL (130-400); WHITE BLOOD COUNT 12.55 K/uL (4.8-10.8)
[2016-07-06 17:56] LABS: BLOOD UREA NITROGEN 11 mg/dl (7-18); BUN/CREATININE RATIO 12.5 (10-20); CALCIUM 9.1 mg/dl (8.5-10.1); CARBON DIOXIDE 26 mmol/L (21-32); CHLORIDE 102 mmol/L (98-107); GLUCOSE 156 mg/dl (70-99); POTASSIUM 3.7 mmol/L (3.5-5.1); SODIUM 139 mmol/L (136-145)
[2016-07-06 18:17] LABS: CHOLESTEROL 118 mg/dl (0-200); CHOLESTEROL/HDL RATIO 2.9; HDL CHOLESTEROL 41 mg/dl; LDL CHOLESTEROL CALCULATED 26 mg/dl; TRIGLYCERIDES 255 mg/dl (0-150); VERY LOW DENSITY LIPOPROT CALC 51 mg/dl
[2016-07-07 06:05] LABS: ESTIMATED AVERAGE GLUCOSE 140 mg/dl; HA1C FLAG Normal (Normal)
== END | disposition home or self-care (01) ==
LOC: C.LABBC 13:41
PROVIDERS: ATTEND Internal Medicine
DX: Z11.59 Encounter for screening for other viral diseases (principal); E03.9 Hypothyroidism, unspecified; E78.00 Pure hypercholesterolemia, unspecified; E11.9 Type 2 diabetes mellitus without complications; I25.10 Atherosclerotic heart disease of native coronary artery without angina pectoris

== ENCOUNTER → 2016-10-07 | Outpatient (CLI) | payer OTHER ==
[2016-10-07 10:43] LABS: CHOLESTEROL/HDL RATIO 2.8
== END | disposition home or self-care (01) ==
LOC: C.LABBC 08:34
PROVIDERS: ATTEND Physician Assistant
DX: E78.5 Hyperlipidemia, unspecified (principal)

== ENCOUNTER → 2016-12-05 | Outpatient (CLI) | payer OTHER ==
[~2016-12-05] MED LIST changes: -CHOL2000 PO; -FOLI1TAB7 PO; -LSN20 PO; -MULT-506 PO; -TPRSR25 PO
[2016-12-05 14:02] LABS: ALT/SGPT 88 U/L (12-78); AST/SGOT 44 U/L (15-37); BLOOD UREA NITROGEN 9 mg/dl (7-18); BUN/CREATININE RATIO 11.1 (10-20); CALCIUM 9.3 mg/dl (8.5-10.1); CARBON DIOXIDE 25 mmol/L (21-32); CHLORIDE 106 mmol/L (98-107); GLUCOSE 166 mg/dl (70-99); POTASSIUM 4.3 mmol/L (3.5-5.1); SODIUM 139 mmol/L (136-145)
[2016-12-05 14:17] LABS: ESTIMATED AVERAGE GLUCOSE 174 mg/dl; HA1C FLAG Normal (Normal)
== END | disposition home or self-care (01) ==
LOC: C.LABBC 09:55
PROVIDERS: ATTEND Family Medicine
DX: Z00.00 Encounter for general adult medical examination without abnormal findings (principal); E11.9 Type 2 diabetes mellitus without complications; E03.9 Hypothyroidism, unspecified; E78.00 Pure hypercholesterolemia, unspecified

== ENCOUNTER → 2017-04-03 | Outpatient (CLI) | payer OTHER ==
[2017-04-03 17:34] LABS: ALT/SGPT 80 U/L (12-78); AST/SGOT 45 U/L (15-37); BLOOD UREA NITROGEN 14 mg/dl (7-18); BUN/CREATININE RATIO 16.8 (10-20); CALCIUM 9.5 mg/dl (8.5-10.1); CARBON DIOXIDE 25 mmol/L (21-32); CHLORIDE 104 mmol/L (98-107); CREATININE 0.86 mg/dl (0.60-1.40); GLUCOSE 116 mg/dl (70-99); POTASSIUM 3.7 mmol/L (3.5-5.1); SODIUM 138 mmol/L (136-145)
[2017-04-04 06:23] LABS: ESTIMATED AVERAGE GLUCOSE 157 mg/dl; HA1C FLAG Normal (Normal)
== END | disposition home or self-care (01) ==
LOC: C.LAB1850 15:48
PROVIDERS: ATTEND Internal Medicine Cardiovascular Disease
DX: E11.9 Type 2 diabetes mellitus without complications (principal); E03.9 Hypothyroidism, unspecified; R74.8 Abnormal levels of other serum enzymes